=== PATIENT | male | born 1940 | race Caucasian/White ===

== ENCOUNTER 2020-09-11 17:14 | Inpatient (IN) | payer MEDICAID, SELFPAY ==
[2020-09-11] VITALS (7 sets, daily range): BP systolic 119–149; BP diastolic 49–71; PULSE 67–93; RESP 16–32; TEMP 36.5–39.9; O2SAT 92–98; BMI 29.2
--- NOTE | ~2020-09-11 | XR_ITS ---
EXAMINATION: XR CHEST CLINICAL INFORMATION: Cough. Question pneumonia COMPARISON: None TECHNIQUE: Frontal view of the chest was obtained. FINDINGS: Patchy ill-defined airspace opacities are seen bilaterally, right greater than left. No dense focal consolidation. No pleural effusion. No pulmonary edema. The cardiac silhouette is enlarged consistent with cardiomegaly. Convex right lumbar scoliosis. Degenerative changes of the bilateral shoulders. XR/XR chest 1V IMPRESSION: Patchy ill-defined airspace opacities are seen bilaterally. The appearance is nonspecific but it is typical for COVID viral pneumonitis. Other forms of multifocal infection or inflammation could have this appearance as well.
--- NOTE | 2020-09-11 17:29 | ED.FEVER ---
HPI - Fever General Chief Complaint: Fever Stated Complaint: fever Time Seen by Provider: 09/11/20 17:21 Source: patient Mode of arrival: ambulatory Limitations: language barrier History of Present Illness HPI Narrative: Patient history of hypertension diabetes been having fever with slight cough for last 3 - 4 days also complaining of pain in right lower chest. No one at home has COVID. Patient denies any nausea vomiting diarrhea no abdominal pain no urinary complaints no history of kidney stones on arrival patient temperature was 103.9 degrees MD elicited complaint: fever Onset (ago): day(s) (3) Related Data Home Medications Medication Instructions Recorded Confirmed metoprolol succinate 1 tab PO DAILY 09/11/20 09/11/20 Previous Rx's Medication Instructions Recorded amlodipine 5 mg tablet 5 mg PO DAILY #90 tab 03/29/20 atorvastatin 40 mg tablet 40 mg PO DAILY #90 tab 03/29/20 candesartan 8 mg tablet 8 mg PO DAILY #90 tab 03/29/20 insulin glargine 100 unit/mL (3 15 unit SUBCUT QAM #15 ml 03/29/20 mL) subcutaneous pen Allergies Allergy/AdvReac Type Severity Reaction Status Date / Time ciprofloxacin [Cipro] Allergy Unknown Verified 11/12/19 00:00 Review of Systems Review of Systems: Constitutional : No Weight loss, ++ Fever,+ Chills ENT/Mouth : No sore throat, No Rhinorrhea Eyes: No Eye Pain, No Swelling Cardiovascular : No Chest Pain, no palpitations Respiratory : ++Cough, No Sputum, no shortness of breath Gastrointestinal : no Nausea, No Vomiting, No Diarrhea, No abdominal Pain, no black stools Genitourinary : No Dysuria, No Urinary Frequency Musculoskeletal : No joint pain, No Myalgias, No Joint Swelling Skin : No Skin Lesions, No rash Neuro : No Weakness, No Numbness, No Dizziness, No Headache Psych : No Anxiety/Panic, No Depression Heme/Lymph: No Bruising, No Lymphadenopathy Endocrine : No Polyuria, No Polydipsia All other systems reviewed and are negative ON LICENSE OF [facility] Past Medical History Medical History Type 2 diabetes mellitus with hyperglycemia Social History Social History Alcohol intake: never Smoking Status: Never smoker Use of substances other than those prescribed or required for medical reasons: No Advance Directives: No Advance Directives Information Provided: Yes Physical Exam Vital Signs: Vital Signs: Last Vital Signs Temp 97.7 F 09/11/20 22:59 Pulse 68 09/11/20 22:59 Resp 28 H 09/11/20 22:59 BP 125/70 09/11/20 22:59 Pulse Ox 94 09/11/20 22:59 Body Mass Index 29.2 Appearance: Alert. Oriented X3. No acute distress. Eyes: Pupils equal, round and reactive to light. ENT: Pharynx normal. Neck: Normal inspection. Neck supple. CVS: Normal heart rate and rhythm. Pulses normal. Respiratory: No respiratory distress. Breath sounds normal. Abdomen: Soft and nontender. Bowel sounds are present, no mass palpable, no CVA tenderness Skin: Skin warm and dry. Normal skin color. Normal skin turgor. Extremities: No lower extremity edema. No calf tenderness Neuro: Oriented X 3. No motor deficit. No sensory deficit. MDM - Fever MDM Narrative Medical decision making narrative: Patient with fever cough clinically COVID and pneumonia chest x-ray suggestive of atypical infiltrate patient already got COVID vaccine 2nd dose was given yesterday, COVID test came positive, patient is saturating 95% at room air but looks sick will admit patient for IV steroids and prophylactic antibiotic treatment 2000: While sleeping patient pulse ox dropped to 91-92%. Patient is sleeping all the time not eating well with multiple comorbidities will admit patient for supportive treatment as patient is very high risk of getting worse with increased inflammatory markers Lab Data Attestation: I reviewed the patient's lab results. Result diagrams: 09/11/20 17:55 09/11/20 17:55 Labs: Lab Results 09/11/20 09/11/20 09/11/20 Range/Units 17:55 17:55 17:55 WBC 11.5 H (4.8-10.8) X10*3/uL RBC 5.02 (4.60-5.80) X10*6/uL Hgb 14.2 (14.0-18.0) g/dl Hct 42.3 (42-52) % MCV 84.3 (80-98) fL MCH 28.3 (27.0-33.0) pg MCHC 33.6 (31.0-36.0) g/dl RDW 14.5 (11.0-16.0) % Plt Count 180 (160-400) X10*3/uL MPV 10.3 (9.4-12.4) fL Immature Gran % (Auto) 0.8 H (0.0-0.4) % Neut % (Auto) 88.7 H (45-73) % Lymph % (Auto) 7.5 L (20-40) % [place] % (Auto) 2.9 (2-11) % Eos % (Auto) 0.0 (0-4) % Baso % (Auto) 0.1 (0-2) % Lymph # (Auto) 0.9 L (1.2-4.9) X10*3/uL [place] # (Auto) 0.3 (0.1-1.2) X10*3/uL Eos # (Auto) 0.0 (0.0-0.4) X10*3/uL Baso # (Auto) 0.0 (0.0-0.2) X10*3/uL Abs Immat Gran (auto) 0.09 H (0.00-0.03) X10*3/uL Absolute Neuts (auto) 10.2 H (2.0-8.3) X10*3/uL Absolute Nucleated RBC 0.000 (0.0-0.012) X10*3/uL Nucleated RBC % (auto) 0.0 (0.0-0.2) /100WBC Smear Tech's Comments VERIFIED PT 13.0 (10.8-13.0) SEC INR 1.1 (0.9-1.1) APTT 31.7 (24.1-38.0) SEC D-Dimer 412 NG/ML Sodium 141 (135-145) mmol/L Potassium 3.6 (3.3-5.1) mmol/L Chloride 104 (96-108) mmol/L Carbon Dioxide 26 (22-29) mmol/L Anion Gap 15 (12-20) BUN 17 H (9-16) mg/dL Creatinine 1.85 H (0.5-1.4) mg/dL Estim Creat Clear Calc 35.8 Estimated GFR 36 Random Glucose 157 H (60-115) mg/dL Lactic Acid (0.5-2.0) mmol/L Calcium 8.3 L (8.4-10.2) mg/dL Total Bilirubin (0.0-1.0) mg/dL Direct Bilirubin (0.0-0.5) mg/dL AST (5-37) U/L ALT (0-40) U/L Alkaline Phosphatase (39-117) U/L Lactate Dehydrogenase (118-273) U/L C-Reactive Protein (< or = 0.50) mg/dL Total Protein (6.5-8.0) g/dL Albumin (3.5-5.0) g/dL Lipase (8-78) U/L COVID-19 ([facility]) (Negative) COVID-19 Clin Com 09/11/20 09/11/20 09/11/20 Range/Units 17:55 17:55 18:03 WBC (4.8-10.8) X10*3/uL RBC (4.60-5.80) X10*6/uL Hgb (14.0-18.0) g/dl Hct (42-52) % MCV (80-98) fL MCH (27.0-33.0) pg MCHC (31.0-36.0) g/dl RDW (11.0-16.0) % Plt Count (160-400) X10*3/uL MPV (9.4-12.4) fL Immature Gran % (Auto) (0.0-0.4) % Neut % (Auto) (45-73) % Lymph % (Auto) (20-40) % [place] % (Auto) (2-11) % Eos % (Auto) (0-4) % Baso % (Auto) (0-2) % Lymph # (Auto) (1.2-4.9) X10*3/uL [place] # (Auto) (0.1-1.2) X10*3/uL Eos # (Auto) (0.0-0.4) X10*3/uL Baso # (Auto) (0.0-0.2) X10*3/uL Abs Immat Gran (auto) (0.00-0.03) X10*3/uL Absolute Neuts (auto) (2.0-8.3) X10*3/uL Absolute Nucleated RBC (0.0-0.012) X10*3/uL Nucleated RBC % (auto) (0.0-0.2) /100WBC Smear Tech's Comments PT (10.8-13.0) SEC INR (0.9-1.1) APTT (24.1-38.0) SEC D-Dimer NG/ML Sodium (135-145) mmol/L Potassium (3.3-5.1) mmol/L Chloride (96-108) mmol/L Carbon Dioxide (22-29) mmol/L Anion Gap (12-20) BUN (9-16) mg/dL Creatinine (0.5-1.4) mg/dL Estim Creat Clear Calc Estimated GFR Random Glucose (60-115) mg/dL Lactic Acid 1.2 (0.5-2.0) mmol/L Calcium (8.4-10.2) mg/dL Total Bilirubin 0.7 (0.0-1.0) mg/dL Direct Bilirubin 0.3 (0.0-0.5) mg/dL AST 41 H (5-37) U/L ALT 34 (0-40) U/L Alkaline Phosphatase 61 (39-117) U/L Lactate Dehydrogenase 364 H (118-273) U/L C-Reactive Protein 16.18 H (< or = 0.50) mg/dL Total Protein 6.6 (6.5-8.0) g/dL Albumin 3.3 L (3.5-5.0) g/dL Lipase 137 H (8-78) U/L COVID-19 ([facility]) Positive A (Negative) COVID-19 Clin Com See Note ECG Data ECG #1: Attestation: I personally reviewed and interpreted this ECG as follows: Interpretation: Normal sinus rhythm heart rate 67 beats per minute left axis deviation right bundle-branch block LVH nonspecific ST T wave changes no acute ischemic changes Discharge Plan Discharge Clinical Impression: COVID-19, Hypoxia Chronic kidney failure Qualifiers: Chronic kidney disease stage: stage 3 (moderate) Chronic kidney disease stage 3 subtype: stage 3b (GFR 30-44) Qualified Code(s): N18.32 - Chronic kidney disease, stage 3b Patient Disposition: Admitted As Inpatient
[2020-09-11 18:04] LABS: Basophils Percent Auto 0.1 % (0-2); Hematocrit 42.3 % (42-52); Hemoglobin 14.2 g/dl (14.0-18.0); Imm Gran Abs Auto 0.09 X10*3/uL (0.00-0.03); Imm Gran Pct Auto 0.8 % (0.0-0.4); Lymphocytes Absolute Auto 0.9 X10*3/uL (1.2-4.9); Lymphocytes Percent Auto 7.5 % (20-40); MANUAL DIFF FLAG SCAN; Mean Corpuscular HGB Conc 33.6 g/dl (31.0-36.0); Mean Corpuscular Hemoglobin 28.3 pg (27.0-33.0); Mean Corpuscular Volume 84.3 fL (80-98); Mean Platelet Volume 10.3 fL (9.4-12.4); Monocytes Absolute Auto 0.3 X10*3/uL (0.1-1.2); Monocytes Percent Auto 2.9 % (2-11); Neutrophils Absolute Auto 10.2 X10*3/uL (2.0-8.3); Neutrophils Percent Auto 88.7 % (45-73); Platelet Count 180 X10*3/uL (160-400); Red Blood Count 5.02 X10*6/uL (4.60-5.80); Red Cell Distribution Width 14.5 % (11.0-16.0); SCAN SMEAR FLAG 1; White Blood Count 11.5 X10*3/uL (4.8-10.8)
[2020-09-11] MEDS: Acetaminophen 325 MG TABLET 650 MG PO (18:09)
[2020-09-11 18:10] LABS: INTERNATIONAL NORM RATIO 1.1 (0.9-1.1)
[2020-09-11] MEDS: 0.9 % Sodium Chloride 1,000 ML 999 ML IVCONT (18:10)
[2020-09-11 18:20] LABS: Lactic Acid 1.2 mmol/L (0.5-2.0)
[2020-09-11 18:24] LABS: SLIDE REVIEW VERIFIED
[2020-09-11 18:34] LABS: Anion Gap 15 (12-20); Blood Urea Nitrogen 17 mg/dL (9-16); Calcium 8.3 mg/dL (8.4-10.2); Carbon Dioxide 26 mmol/L (22-29); Chloride 104 mmol/L (96-108); Creatinine Clr Calc Pharmacy 35.8; Estimated Glomerular Filt Rate 36; Glucose Random 157 mg/dL (60-115); Potassium 3.6 mmol/L (3.3-5.1); Sodium 141 mmol/L (135-145)
[2020-09-11 18:36] LABS: Alanine Aminotransferase 34 U/L (0-40); Albumin Level 3.3 g/dL (3.5-5.0); Alkaline Phosphatase 61 U/L (39-117); Aspartate Amino Transferase 41 U/L (5-37); Bilirubin Direct 0.3 mg/dL (0.0-0.5); Bilirubin Total 0.7 mg/dL (0.0-1.0); Total Protein 6.6 g/dL (6.5-8.0)
[2020-09-11 18:38] LABS: COVID-19 Test Positive (Negative)
[2020-09-11] MEDS: dexAMETHasone sod phosphate 4 MG/ML VIAL 6 MG IVPUSH (19:03)
[2020-09-11] MEDS: cefTRIAXone sodium 1 GM in 0.9 % Sodium Chloride 50 ML IV (19:03)
[2020-09-11 19:09] LABS: C Reactive Protein 16.18 mg/dL (< or = 0.50); Lactate Dehydrogenase 364 U/L (118-273)
[2020-09-11 19:10] LABS: Lipase 137 U/L (8-78)
[2020-09-11 19:25] LABS: D Dimer 412 NG/ML; Partial Thromboplastin Time 31.7 SEC (24.1-38.0)
[2020-09-11] MEDS: Azithromycin 500 MG in 0.9 % Sodium Chloride 250 ML 125 MG IV (19:34)
--- NOTE | 2020-09-11 20:47 | PC.NURSE ---
pt being seen by hospitalist at this time.
--- NOTE | 2020-09-11 21:24 | PM.IMHP ---
History of Present Illness Date of Service: 09/11/20 Chief Complaint: Fevers and chills 79-year-old male with a past medical history of hypertension, hyperlipidemia, diabetes, coronary artery disease, chronic kidney disease, CHF with EF of 40% presented to the hospital with a chief complaint of fevers and chills. Most of the history obtained from the patient's family as well as the ER staff. Reportedly patient was tested COVID positive about few days ago and has been having fevers and chills at home. Denies any shortness of breath. Had dry cough. Denies any chest pain lightheadedness dizziness. Denies any nausea vomiting. Had loose stools. Review of all other systems is negative except mentioned above ER course: Per ER team patient was saturating 94% on room air, inflammatory markers elevated, chest x-ray showed COVID pneumonia. Also noted to have mild elevation in the creatinine. Admitted to the hospital for further management. [facility] Medical History Type 2 diabetes mellitus with hyperglycemia Social History Household Members: Family Housing: House Alcohol intake: never Smoking Status: Never smoker service: No Current occupational status: retired Meds Allergies Allergy/AdvReac Type Severity Reaction Status Date / Time ciprofloxacin [Cipro] Allergy Unknown Verified 11/12/19 00:00 Active Medications: Current Medications Generic Name Dose Route Start Last Admin Trade Name Freq PRN Reason Stop Dose Admin Acetaminophen 650 mg 09/11/20 21:12 Acetaminophen 325 Mg Tablet PO Q6H PRN Pain, Mild (Pain Scale 1-3) Albuterol Sulfate 4 puff 09/11/20 21:05 Albuterol Sulfate 90 Mcg 8 Gm Inhaler INHALE Q2H PRN Shortness of Breath/Wheezing Ascorbic Acid 500 mg 09/12/20 09:00 Ascorbic Acid 500 Mg Tablet PO DAILY [facility] Azithromycin 500 mg 09/11/20 21:15 Azithromycin 500 Mg Tablet PO Q24H [facility] Docusate Sodium 100 mg 09/11/20 21:12 Docusate Sodium 100 Mg Capsule PO DAILY PRN Constipation Enoxaparin Sodium 40 mg 09/11/20 21:15 Enoxaparin Sodium 40 Mg/0.4 Ml Syringe SUBCUT Q24H [facility] Ceftriaxone Sodium 1 gm/ 50 mls @ 100 mls/hr 09/12/20 22:00 Sodium Chloride IV Q24H [facility] Insulin Glargine 10 unit 09/12/20 21:00 Insulin Glargine,Hum.Rec.Anlog 100 Unit/Ml 10 Ml Vial SUBCUT BEDTIME [facility] Insulin Human Lispro 0 unit 09/12/20 07:30 Insulin Lispro 100 Unit/Ml 3 Ml Vial SUBCUT QIDACHS [facility] Protocol Methylprednisolone Sodium Succinate 80 mg 09/11/20 22:00 Methylprednisolone Sod Succ 125 Mg/2 Ml Vial IVPUSH Q12H [facility] Senna 17.2 mg 09/11/20 21:12 Sennosides 8.6 Mg Tablet PO BEDTIME PRN Constipation Sodium Chloride 3 ml 09/12/20 00:00 0.9 % Sodium Chloride Flush 3 Ml Syringe IVFLUSH QSHIFT [facility] Vitamin D 20 mcg 09/12/20 09:00 Cholecalciferol (Vitamin D3) 10 Mcg Tablet PO DAILY [facility] Zinc Sulfate 80 mg 09/12/20 09:00 Zinc Sulfate 220 Mg Capsule PO DAILY [facility] Physical Exam Vital Signs and Narrative: Vital Signs: Last Vital Signs Temp 100.3 F 09/11/20 19:51 Pulse 84 09/11/20 19:49 Resp 32 H 09/11/20 19:49 BP 119/60 09/11/20 19:49 Pulse Ox 95 09/11/20 19:49 Body Mass Index 29.2 Gen: Appears be in no acute distress HEENT: NCAT, Moist mucosa. Pulmonary: Breathing comfortably, saturating 94% and CVS: Regular Abdomen: BS+, Soft, Nontender Extremities: Warm well perfused; no pedal edema Neuro: Alert and awake. Moves all extremities equally Results Labs CBC and Chem 7: 09/14/20 06:16 09/15/20 12:37 Labs: Laboratory Results - last 24 hr 09/11/20 09/11/20 09/11/20 17:55 17:55 17:55 MCV 84.3 MCH 28.3 MCHC 33.6 RDW 14.5 Plt Count 180 MPV 10.3 Immature Gran % (Auto) 0.8 H Neut % (Auto) 88.7 H Lymph % (Auto) 7.5 L [place] % (Auto) 2.9 Eos % (Auto) 0.0 Baso % (Auto) 0.1 Lymph # (Auto) 0.9 L Stephens # (Auto) 0.3 Eos # (Auto) 0.0 Baso # (Auto) 0.0 Abs Immat Gran (auto) 0.09 H Absolute Neuts (auto) 10.2 H Absolute Nucleated RBC 0.000 Nucleated RBC % (auto) 0.0 Smear Tech's Comments VERIFIED PT 13.0 INR 1.1 APTT 31.7 D-Dimer 412 Anion Gap 15 Estim Creat Clear Calc 35.8 Estimated GFR 36 Random Glucose 157 H Lactic Acid Calcium 8.3 L Total Bilirubin Direct Bilirubin AST ALT Alkaline Phosphatase Lactate Dehydrogenase C-Reactive Protein Total Protein Albumin Lipase COVID-19 ([facility]) COVID-19 Clin Com 09/11/20 09/11/20 09/11/20 17:55 17:55 18:03 MCV MCH MCHC RDW Plt Count MPV Immature Gran % (Auto) Neut % (Auto) Lymph % (Auto) Stephens % (Auto) Eos % (Auto) Baso % (Auto) Lymph # (Auto) Stephens # (Auto) Eos # (Auto) Baso # (Auto) Abs Immat Gran (auto) Absolute Neuts (auto) Absolute Nucleated RBC Nucleated RBC % (auto) Smear Tech's Comments PT INR APTT D-Dimer Anion Gap Estim Creat Clear Calc Estimated GFR Random Glucose Lactic Acid 1.2 Calcium Total Bilirubin 0.7 Direct Bilirubin 0.3 AST 41 H ALT 34 Alkaline Phosphatase 61 Lactate Dehydrogenase 364 H C-Reactive Protein 16.18 H Total Protein 6.6 Albumin 3.3 L Lipase 137 H COVID-19 ([facility]) Positive A COVID-19 Clin Com See Note Imaging Radiologist's Impressions: Impressions Chest X-Ray 09/11/20 17:30 IMPRESSION: Patchy ill-defined airspace opacities are seen bilaterally. The appearance is nonspecific but it is typical for COVID viral pneumonitis. Other forms of multifocal infection or inflammation could have this appearance as well. Assessment and Plan (1) COVID-19: Status: Acute 79-year-old male with a past medical history of hypertension, hyperlipidemia, diabetes, coronary artery disease, CKD, CHF with EF of 40% presented to the hospital with a chief complaint of fevers and chills. Patient is COVID-19 positive. Chest x-ray showed COVID-19 pneumonia. Admitted for further management. COVID-19 pneumonia: Will continue the patient on ceftriaxone and azithromycin. Will continue the patient's Solu-Medrol 80 mg IV b.i.d.. Spoke to the patient's daughter-Dr. Gonzalez; requesting [facility] protocol. Spoke to M[facility] from [facility] for possible approval-recommended remdesivir for now; Spoke to the family about the side effects of the home medications, agreed to continue the treatment. Will continue the patient on multi vitamins including vitamin-D, vitamin-C, zinc. Supplemental oxygen p.r.n. goal oxygen saturation greater than 95%. Will also consult pulmonology for further recommendations Diabetes: Will give the patient on Lantus plus sliding scale. Monitor fingerstick glucose. Mild DC on CKD: Avoid nephrotoxins. Monitor creatinine. Encouraged oral fluids. Will avoid IV fluids given COVID-19 pneumonia CHF: Stable. Continue home medications. DVT prophylaxis: Lovenox Code status: Full code
--- NOTE | 2020-09-11 22:12 | ECG_ITS ---
Test Reason : COVID SYMPTOMS Blood Pressure : / mmHG Vent. Rate : 067 BPM Atrial Rate : 067 BPM P-R Int : 150 ms QRS Dur : 142 ms QT Int : 482 ms P-R-T Axes : 047 -46 005 degrees QTc Int : 509 ms Normal sinus rhythm Left axis deviation Right bundle branch block Minimal voltage criteria for LVH, may be normal variant Inferior infarct , age undetermined Abnormal ECG No previous ECGs available Referred By: Germán Wyatt Electronically Signed By:Jermaine Valle
[2020-09-11] MEDS: Remdesivir 200 MG in 0.9 % Sodium Chloride 210 ML 105 MG IV (23:02)
[2020-09-11] MEDS: Azithromycin 500 MG TABLET PO (23:03)
[2020-09-11] MEDS: Enoxaparin Sodium 40 MG/0.4 ML SYRINGE SUBCUT (23:03)
[2020-09-11] MEDS: methylPREDNISolone Sod Succ 125 MG/2 ML VIAL 80 MG IVPUSH (23:03)
[2020-09-12] MEDS: 0.9 % Sodium Chloride Flush 3 ML SYRINGE IVFLUSH ×4 (00:16→21:47)
[2020-09-12 03:00] VITALS: BP 133/67; PULSE 60; RESP 10; O2SAT 96
[2020-09-12 06:00] VITALS: BP 136/67; PULSE 68; RESP 10; TEMP 37.2; O2SAT 95
[2020-09-12 08:25] LABS: Glucose, Whole Blood 206 mg/dL (60-115)
[2020-09-12 08:47] LABS: MANUAL DIFF FLAG NO
[2020-09-12 09:05] LABS: Basophils Percent Auto 0.1 % (0-2); Hematocrit 46.7 % (42-52); Hemoglobin 15.2 g/dl (14.0-18.0); Imm Gran Abs Auto 0.04 X10*3/uL (0.00-0.03); Imm Gran Pct Auto 0.4 % (0.0-0.4); Lymphocytes Absolute Auto 1.2 X10*3/uL (1.2-4.9); Lymphocytes Percent Auto 11.1 % (20-40); Mean Corpuscular HGB Conc 32.5 g/dl (31.0-36.0); Mean Corpuscular Hemoglobin 27.7 pg (27.0-33.0); Mean Corpuscular Volume 85.2 fL (80-98); Mean Platelet Volume 11.3 fL (9.4-12.4); Monocytes Absolute Auto 0.1 X10*3/uL (0.1-1.2); Monocytes Percent Auto 1.1 % (2-11); Neutrophils Absolute Auto 9.2 X10*3/uL (2.0-8.3); Neutrophils Percent Auto 87.3 % (45-73); Platelet Count 201 X10*3/uL (160-400); Red Blood Count 5.48 X10*6/uL (4.60-5.80); Red Cell Distribution Width 14.6 % (11.0-16.0); White Blood Count 10.5 X10*3/uL (4.8-10.8)
[2020-09-12 09:21] LABS: Lactate Dehydrogenase 356 U/L (118-273)
[2020-09-12 09:24] LABS: Anion Gap 17 (12-20); Blood Urea Nitrogen 19 mg/dL (9-16); Calcium 8.3 mg/dL (8.4-10.2); Carbon Dioxide 24 mmol/L (22-29); Chloride 108 mmol/L (96-108); Creatinine Clr Calc Pharmacy 39.7; Estimated Glomerular Filt Rate 40; Glucose Random 234 mg/dL (60-115); Magnesium 2.2 mg/dL (1.6-2.6); Potassium 4.5 mmol/L (3.3-5.1); Sodium 144 mmol/L (135-145)
[2020-09-12] MEDS: Zinc Sulfate 220 MG CAPSULE PO (09:28)
[2020-09-12] MEDS: Insulin Lispro 100 UNIT/ML 3 ML VIAL SUBCUT ×4 (09:28→21:42)
[2020-09-12] MEDS: Cholecalciferol (Vitamin D3) 10 MCG TABLET 20 MCG PO (09:28)
[2020-09-12] MEDS: Ascorbic Acid 500 MG TABLET PO (09:28)
[2020-09-12] MEDS: methylPREDNISolone Sod Succ 125 MG/2 ML VIAL 80 MG IVPUSH ×2 (09:30→21:41)
[2020-09-12 09:37] LABS: Ferritin 536 ng/mL (20-250)
[2020-09-12 09:46] LABS: Procalcitonin 0.42 ng/mL
--- NOTE | 2020-09-12 11:31 | HO.PM.IMPN ---
Subjective Subjective Date of Service: 09/12/20 <Jaida Ramirez NP - Last Filed: 09/12/20 12:14> 09/12/20 <Nadir Lama MD - Last Filed: 09/12/20 18:19> Interval History: Follow up covid 19 pneumonia. No pain or breathing trouble. <Jaida Ramirez NP - Last Filed: 09/12/20 12:14> Physical Exam Vital Signs: Vital Signs: Last Vital Signs Temp 99.0 F 09/12/20 06:00 Pulse 68 09/12/20 06:00 Resp 10 L 09/12/20 06:00 BP 136/67 09/12/20 06:00 Pulse Ox 95 09/12/20 06:00 Body Mass Index 29.2 <Jaida Ramirez NP - Last Filed: 09/12/20 12:14> Appearing in no acute distress head is normocephalic atraumatic lungs normal expansion heart regular rate rhythm, clear S1, S2 positive bowel sounds, abdomen is soft, nontender neuro patient is alert, mildly slower to respond but not confused. no focal deficits <Jaida Ramirez NP - Last Filed: 09/12/20 12:14> Objective Data Current Medications Generic Name Dose Route Start Last Admin Trade Name Freq PRN Reason Stop Dose Admin Acetaminophen 650 mg 09/11/20 21:12 Acetaminophen 325 Mg Tablet PO Q6H PRN Pain, Mild (Pain Scale 1-3) Albuterol Sulfate 4 puff 09/11/20 21:05 Albuterol Sulfate 90 Mcg 8 Gm Inhaler INHALE Q2H PRN Shortness of Breath/Wheezing Ascorbic Acid 500 mg 09/12/20 09:00 09/12/20 09:28 Ascorbic Acid 500 Mg Tablet PO 500 mg DAILY [facility] Administration Azithromycin 500 mg 09/11/20 22:00 09/11/20 23:03 Azithromycin 500 Mg Tablet PO 500 mg Q24H [facility] Administration Docusate Sodium 100 mg 09/11/20 21:12 Docusate Sodium 100 Mg Capsule PO DAILY PRN Constipation Enoxaparin Sodium 40 mg 09/11/20 22:00 09/11/20 23:03 Enoxaparin Sodium 40 Mg/0.4 Ml Syringe SUBCUT 40 mg Q24H [facility] Administration Ceftriaxone Sodium 1 gm/ 50 mls @ 100 mls/hr 09/12/20 22:00 Sodium Chloride IV Q24H [facility] Remdesivir 100 mg/ Sodium 230 mls @ 115 mls/hr 09/12/20 21:00 Chloride IV 09/15/20 22:59 Q24H [facility] Insulin Glargine 10 unit 09/12/20 21:00 Insulin Glargine,Hum.Rec.Anlog 100 Unit/Ml 10 Ml Vial SUBCUT BEDTIME [facility] Insulin Human Lispro 0 unit 09/12/20 07:30 09/12/20 09:28 Insulin Lispro 100 Unit/Ml 3 Ml Vial SUBCUT 4 unit QIDACHS [facility] Administration Protocol Methylprednisolone Sodium Succinate 80 mg 09/11/20 22:00 09/12/20 09:30 Methylprednisolone Sod Succ 125 Mg/2 Ml Vial IVPUSH 80 mg Q12H [facility] Administration Senna 17.2 mg 09/11/20 21:12 Sennosides 8.6 Mg Tablet PO BEDTIME PRN Constipation Sodium Chloride 3 ml 09/12/20 00:00 09/12/20 09:28 0.9 % Sodium Chloride Flush 3 Ml Syringe IVFLUSH 3 ml QSHIFT [facility] Administration Vitamin D 20 mcg 09/12/20 09:00 09/12/20 09:28 Cholecalciferol (Vitamin D3) 10 Mcg Tablet PO 20 mcg DAILY [facility] Administration Zinc Sulfate 220 mg 09/12/20 09:00 09/12/20 09:28 Zinc Sulfate 220 Mg Capsule PO 220 mg DAILY [facility] Administration <Jaida Ramirez NP - Last Filed: 09/12/20 12:14> Labs CBC & Chem 7: : 09/12/20 08:38 09/12/20 08:38 <Jaida Ramirez NP - Last Filed: 09/12/20 12:14> Assessment and Plan (1) COVID-19: Status: Acute <Jaida Ramirez NP - Last Filed: 09/12/20 12:14> Assessment and Plan: 79-year-old male with a past medical history of hypertension, hyperlipidemia, diabetes, coronary artery disease, CKD, CHF with EF of 40% presented to the hospital with a chief complaint of fevers and chills. Patient is COVID-19 positive. Chest x-ray showed COVID-19 pneumonia. COVID-19 pneumonia. No hypoxia noted, fever of 103 yesterday no fever today. Patients daughter, Dr. Gonzalez requested that the [facility] protocol be used for covid management. -Ferritin 532, LDH 356, procal 0.42. Trend -Solumedrol 80mg Q12h -Will stop Rocephin and continue Azithromycin -ID following rec remdesivir -pulmonology consult -Continue on vitamin D, C, zinc -Supplemental oxygen as needed -[place] Diabetes -sliding scale -lantus -ADA diet Mild DC on CKD with proteinuria -Add LR maint as per nephrology -Urine total protein, albumin added -Avoid nephrotoxins. -trend creatinine. CHF. No exacerbation continue home medications. DVT prophylaxis: Lovenox Attending: Dr. Lama <Jaida Ramirez NP - Last Filed: 09/12/20 12:14>
--- NOTE | 2020-09-12 11:47 | P.CONNP_ITS ---
History of Present Illness Reason for Consult Consult date: 09/12/20 Reason for consult: DC Chief Complaint Chief complaint: Covid PNA History of Present Illness Narrative: Mr. 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 The patient has a CXR c/w viral PNA. He is now on dexamethasone and Remdesivir. He appears hypo to euvolemic on exam. He denies edema. Review of Systems Review of Systems He reports Dyspnea Yes all other systems are reviewed and are negative PMFSH Past Medical History Medical History Type 2 diabetes mellitus with hyperglycemia Family History Pertinent family history: Family history of CKD from diabetes. Social History Social History Alcohol intake: never Smoking Status: Never smoker Use of substances other than those prescribed or required for medical reasons: No Advance Directives: No Advance Directives Information Provided: Yes Meds Allergies Allergy/AdvReac Type Severity Reaction Status Date / Time ciprofloxacin [Cipro] Allergy Unknown Verified 11/12/19 00:00 Active Medications: Current Medications Generic Name Dose Route Start Last Admin Trade Name Freq PRN Reason Stop Dose Admin Acetaminophen 650 mg 09/11/20 21:12 Acetaminophen 325 Mg Tablet PO Q6H PRN Pain, Mild (Pain Scale 1-3) Albuterol Sulfate 4 puff 09/11/20 21:05 Albuterol Sulfate 90 Mcg 8 Gm Inhaler INHALE Q2H PRN Shortness of Breath/Wheezing Ascorbic Acid 500 mg 09/12/20 09:00 09/12/20 09:28 Ascorbic Acid 500 Mg Tablet PO 500 mg DAILY [facility] Administration Azithromycin 500 mg 09/11/20 22:00 09/11/20 23:03 Azithromycin 500 Mg Tablet PO 500 mg Q24H [facility] Administration Docusate Sodium 100 mg 09/11/20 21:12 Docusate Sodium 100 Mg Capsule PO DAILY PRN Constipation Enoxaparin Sodium 40 mg 09/11/20 22:00 09/11/20 23:03 Enoxaparin Sodium 40 Mg/0.4 Ml Syringe SUBCUT 40 mg Q24H [facility] Administration Ceftriaxone Sodium 1 gm/ 50 mls @ 100 mls/hr 09/12/20 22:00 Sodium Chloride IV Q24H [facility] Remdesivir 100 mg/ Sodium 230 mls @ 115 mls/hr 09/12/20 21:00 Chloride IV 09/15/20 22:59 Q24H [facility] Insulin Glargine 10 unit 09/12/20 21:00 Insulin Glargine,Hum.Rec.Anlog 100 Unit/Ml 10 Ml Vial SUBCUT BEDTIME [facility] Insulin Human Lispro 0 unit 09/12/20 07:30 09/12/20 09:28 Insulin Lispro 100 Unit/Ml 3 Ml Vial SUBCUT 4 unit QIDACHS [facility] Administration Protocol Methylprednisolone Sodium Succinate 80 mg 09/11/20 22:00 09/12/20 09:30 Methylprednisolone Sod Succ 125 Mg/2 Ml Vial IVPUSH 80 mg Q12H [facility] Administration Senna 17.2 mg 09/11/20 21:12 Sennosides 8.6 Mg Tablet PO BEDTIME PRN Constipation Sodium Chloride 3 ml 09/12/20 00:00 09/12/20 09:28 0.9 % Sodium Chloride Flush 3 Ml Syringe IVFLUSH 3 ml QSHIFT [facility] Administration Vitamin D 20 mcg 09/12/20 09:00 09/12/20 09:28 Cholecalciferol (Vitamin D3) 10 Mcg Tablet PO 20 mcg DAILY [facility] Administration Zinc Sulfate 220 mg 09/12/20 09:00 09/12/20 09:28 Zinc Sulfate 220 Mg Capsule PO 220 mg DAILY [facility] Administration Home Medications Medication Instructions Recorded Confirmed Last Taken Type metoprolol succinate 1 tab PO DAILY 09/11/20 09/11/20 Unknown History Physical Exam Vital Signs: Last Vital Signs Temp 99.0 F 09/12/20 06:00 Pulse 68 09/12/20 06:00 Resp 10 L 09/12/20 06:00 BP 136/67 09/12/20 06:00 Pulse Ox 95 09/12/20 06:00 Body Mass Index 29.2 Const General: cooperative and no acute distress Resp Effort & Inspection: normal respiratory effort Auscultation: clear to auscultation bilaterally Cardio Jugular venous distension: no JVD Rate: regular rate Heart sounds: S1 normal heart sound present and S2 normal heart sound present GI Inspection: Yes normal to inspection Percussion: Yes normal to percussion Auscultation: normal bowel sounds Extrem Other: No pitting edema Results Lab Results Result Diagrams: 09/12/20 08:38 09/12/20 08:38 Lab results: Chemistry 09/11/20 09/12/20 17:55 08:38 Sodium 141 144 Potassium 3.6 4.5 D Carbon Dioxide 26 24 BUN 17 H 19 H Creatinine 1.85 H 1.67 H Calcium 8.3 L 8.3 L Hematology 09/11/20 09/12/20 17:55 08:38 WBC 11.5 H 10.5 Hgb 14.2 15.2 Plt Count 180 201 Assessment and Plan (1) Chronic kidney failure: Qualifiers: Chronic kidney disease stage: stage 3 (moderate) Chronic kidney disease stage 3 subtype: stage 3b (GFR 30-44) Qualified Code(s): N18.32 - Chronic kidney disease, stage 3b Problem details: Mr. 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 1. CKD stage IIIb Baseline Cr 2.0-2.2mg/dL Followed by Dr. Eduardo Flores. Last seen in office 08/01/2019. Pt was found to be proteinuric, with a urine protein gap. UPEP normal. Complements negative. Anti GBM negative. Likely diabetic nephropathy. Now with COVID Plan: - please provide maintenance LR at 100cc/hr for 1 liter given viral syndrome and insensible losses to prevent dc - DC risk score elevated, LR recommended for 1 liter - Please repeat a TP/Cr and Alb/Cr spot urine, may need further work up than diabetes. Status: Acute (2) Type 2 diabetes mellitus with hyperglycemia: Status: Acute (3) COVID-19: Status: Acute
[2020-09-12 12:41] LABS: Glucose, Whole Blood 219 mg/dL (60-115)
[2020-09-12] MEDS: Lactated Ringers 1,000 ML 50 ML IVCONT (13:03)
[2020-09-12 13:04] VITALS: BP 128/67; PULSE 74; RESP 24; TEMP 37.2; O2SAT 97
--- NOTE | 2020-09-12 14:51 | P.CONPL_ITS ---
History of Present Illness History of Present Illness Consult date: 09/12/20 Reason for consult: pneumonia Chief complaint: Covid PNA Narrative: 79-year-old male with a past medical history of hypertension, hyperlipidemia, diabetes, coronary artery disease, chronic kidney disease, CHF with EF of 40% presented to the hospital with a chief complaint of fevers and ch ills. Most of the history obtained from the patient's family as well as the ER staff. Reportedly patient was tested COVID positive about few days ago and has been having fevers and chills at home. Denies any shortness of breath. Had dry cough. Denies any chest pain lightheadedness dizziness. Denies any nausea vomiting. In the ER hewas saturating 94% on room air, inflammatory markers elevated, chest x-ray showed COVID pneumonia. Also noted to have mild elevation in the creatinine. Admitted to the hospital for further management. He was started on Solumedrol and Remdisivir as well as antibacterial therapy. Currently on RA. Review of Systems Constitutional: Constitutional: Reports fatigue, Reports fever(s) and Reports malaise ENT: Denies change in voice, Denies lip swelling, Denies mouth pain, Reports nasal congestion, Reports nasal discharge and Denies tongue swelling Cardiovascular: Cardiovascular: Denies chest pain and Reports dyspnea Respiratory: Respiratory: Reports cough and Reports dyspnea Gastrointestinal: Gastrointestinal: Denies abdominal pain Musculoskeletal: Musculoskeletal: Denies no additional musculoskeletal complaints Neurologic: Denies Neuro-related abnormal movements Psychiatric: Psychiatric: Denies no additional psychiatric complaints Endocrine: Endocrine: Reports fatigue Hematologic/Lymphatic: Hematologic/Lymphatic: Denies easy bleeding and Denies lymphadenopathy Allergic/Immunologic: Allergic/Immunologic: Denies lip swelling and Denies tongue swelling [facility] Past Medical History Medical History Type 2 diabetes mellitus with hyperglycemia Social History Social History Alcohol intake: never Smoking Status: Never smoker Meds Allergies Allergy/AdvReac Type Severity Reaction Status Date / Time ciprofloxacin [Cipro] Allergy Unknown Verified 11/12/19 00:00 Active Medications: Current Medications Generic Name Dose Route Start Last Admin Trade Name Freq PRN Reason Stop Dose Admin Acetaminophen 650 mg 09/11/20 21:12 Acetaminophen 325 Mg Tablet PO Q6H PRN Pain, Mild (Pain Scale 1-3) Albuterol Sulfate 4 puff 09/11/20 21:05 Albuterol Sulfate 90 Mcg 8 Gm Inhaler INHALE Q2H PRN Shortness of Breath/Wheezing Ascorbic Acid 500 mg 09/12/20 09:00 09/12/20 09:28 Ascorbic Acid 500 Mg Tablet PO 500 mg DAILY [facility] Administration Azithromycin 500 mg 09/11/20 22:00 09/11/20 23:03 Azithromycin 500 Mg Tablet PO 500 mg Q24H [facility] Administration Docusate Sodium 100 mg 09/11/20 21:12 Docusate Sodium 100 Mg Capsule PO DAILY PRN Constipation Enoxaparin Sodium 40 mg 09/11/20 22:00 09/11/20 23:03 Enoxaparin Sodium 40 Mg/0.4 Ml Syringe SUBCUT 40 mg Q24H [facility] Administration Famotidine 40 mg 09/12/20 21:00 Famotidine 20 Mg Tablet PO BEDTIME [facility] Remdesivir 100 mg/ Sodium 230 mls @ 115 mls/hr 09/12/20 21:00 Chloride IV 09/15/20 22:59 Q24H [facility] Lactated Ringer's 1,000 mls @ 50 mls/hr 09/12/20 12:15 09/12/20 13:03 Lr IVCONT 50 mls/hr .Q20H [facility] Administration Insulin Glargine 10 unit 09/12/20 21:00 Insulin Glargine,Hum.Rec.Anlog 100 Unit/Ml 10 Ml Vial SUBCUT BEDTIME [facility] Insulin Human Lispro 0 unit 09/12/20 07:30 09/12/20 12:57 Insulin Lispro 100 Unit/Ml 3 Ml Vial SUBCUT 4 unit QIDACHS [facility] Administration Protocol Methylprednisolone Sodium Succinate 80 mg 09/11/20 22:00 09/12/20 09:30 Methylprednisolone Sod Succ 125 Mg/2 Ml Vial IVPUSH 80 mg Q12H [facility] Administration Senna 17.2 mg 09/11/20 21:12 Sennosides 8.6 Mg Tablet PO BEDTIME PRN Constipation Sodium Chloride 3 ml 09/12/20 00:00 09/12/20 09:28 0.9 % Sodium Chloride Flush 3 Ml Syringe IVFLUSH 3 ml QSHIFT [facility] Administration Vitamin D 20 mcg 09/12/20 09:00 09/12/20 09:28 Cholecalciferol (Vitamin D3) 10 Mcg Tablet PO 20 mcg DAILY [facility] Administration Zinc Sulfate 220 mg 09/12/20 09:00 09/12/20 09:28 Zinc Sulfate 220 Mg Capsule PO 220 mg DAILY [facility] Administration Home Medications Medication Instructions Recorded Confirmed Last Taken Type metoprolol succinate 1 tab PO DAILY 09/11/20 09/11/20 Unknown History Physical Exam Vital Signs: Vital Signs: Last Vital Signs Temp 98.9 F 09/12/20 13:04 Pulse 74 09/12/20 13:04 Resp 24 H 09/12/20 13:04 BP 128/67 09/12/20 13:04 Pulse Ox 97 09/12/20 13:04 Body Mass Index 29.2 Const: General: alert Neck: Neck: Yes normal visual inspection, Yes full ROM and Yes no lymphadenopathy Chest: Chest palpation & inspection: normal inspection of the chest Resp: Auscultation: diminished lung sounds Cardio: Rate: regular rate Rhythm: regular rhythm Heart sounds: S1 normal heart sound present and S2 normal heart sound present GI: Palpation (GI): Soft to palpation and nontender Auscultation: normal bowel sounds Skin: General skin exam: rashes and/or lesions noted Results Laboratory Findings CBC and BMP: 09/12/20 08:38 09/12/20 08:38 ABG, PT/INR, D-dimer: PT/INR, D-dimer PT 13.0 SEC (10.8-13.0) 09/11/20 17:55 INR 1.1 (0.9-1.1) 09/11/20 17:55 D-Dimer 412 NG/ML 09/11/20 17:55 Abnormal lab findings: Abnormal Labs 09/11/20 09/11/20 09/11/20 17:55 17:55 17:55 WBC 11.5 H Immature Gran % (Auto) 0.8 H Neut % (Auto) 88.7 H Lymph % (Auto) 7.5 L [place] % (Auto) Lymph # (Auto) 0.9 L Abs Immat Gran (auto) 0.09 H Absolute Neuts (auto) 10.2 H BUN 17 H Creatinine 1.85 H POC Glucose Random Glucose 157 H Calcium 8.3 L Ferritin AST 41 H Lactate Dehydrogenase 364 H C-Reactive Protein 16.18 H Albumin 3.3 L Lipase 137 H COVID-19 ([facility]) 0409/12/20 09/12/20 18:03 08:20 08:38 WBC Immature Gran % (Auto) Neut % (Auto) 87.3 H Lymph % (Auto) 11.1 L [place] % (Auto) 1.1 L Lymph # (Auto) Abs Immat Gran (auto) 0.04 H Absolute Neuts (auto) 9.2 H BUN Creatinine POC Glucose 206 H Random Glucose Calcium Ferritin AST Lactate Dehydrogenase C-Reactive Protein Albumin Lipase COVID-19 ([facility]) Positive A 09/12/20 09/12/20 09/12/20 08:38 08:38 12:24 WBC Immature Gran % (Auto) Neut % (Auto) Lymph % (Auto) [place] % (Auto) Lymph # (Auto) Abs Immat Gran (auto) Absolute Neuts (auto) BUN 19 H Creatinine 1.67 H POC Glucose 219 H Random Glucose 234 H D Calcium 8.3 L Ferritin 536 H AST Lactate Dehydrogenase 356 H C-Reactive Protein Albumin Lipase COVID-19 ([facility]) Assessment and Plan (1) Acute respiratory disease due to 2019 novel coronavirus: Status: Acute (2) COVID-19: Status: Acute (3) Pneumonia: Qualifiers: Pneumonia type: due to unspecified organism Laterality: bilateral Lung location: unspecified part of lung Qualified Code(s): J18.9 - Pneumonia, unspecified organism Status: Acute Continue Remdisivir Consider changing the Solumedrol to Decadron 6mg daily Consider descalation of antibiotics to Doxycycline to cover better staph post viral bacterial infections Pepcid/vitC/zinc/melatonin Continue Lovenox
[2020-09-12 15:07] VITALS: BP 134/62; PULSE 80; RESP 20; TEMP 36.7; O2SAT 96
[2020-09-12 16:34] LABS: Glucose, Whole Blood 311 mg/dL (60-115)
--- NOTE | 2020-09-12 18:19 | PM.EVENT ---
Event Note Date of Service: 09/12/20 Event Note: Patient seen examined , chart reviewed case discussed with APC. Briefly 79-year-old gentleman with past medical history of hypertension hyperlipidemia diabetes coronary artery disease CHF with EF 40% came in with complaints of fever chills, dry cough, and loose stools with COVID positive test few days ago. On examination patient awake alert slow to respond Lungs clear to auscultation, no use of accessory muscles no respiratory distress Extremities no edema Assessment and plan COVID-19 pneumonia, no hypoxia Patient evaluated by Infectious Disease and placed on remdesivir, continue IV steroids, IV azithromycin and supportive care follow labs and clinical course closely
--- NOTE | 2020-09-12 18:22 | PC.NURSE ---
Pt. arrived from ED, Covid positive, [place] speaking only, TIMBI-SHA SHOSHONE, A+Ox1, pleasantly confused, per daughter Corinne- pt. has memory issues and is forgetful at home, OOb with assistance at home, attempted to get pt. OOB to bathroom but pt. is a max assist, and can stand and pivot at most, LR running at 50mL/hr, sats at 96% on RA, no SOB noted, no cough noted, pt. denies pain, resting in bed, call hardin in reach
[2020-09-12] MEDS: Remdesivir 100 MG in 0.9 % Sodium Chloride 230 ML 115 MG IV (19:39)
[2020-09-12] MEDS: Famotidine 20 MG TABLET PO (19:40)
[2020-09-12 20:00] VITALS: BP 134/70; PULSE 77; RESP 20; TEMP 36.1; O2SAT 99
[2020-09-12 20:57] LABS: Glucose, Whole Blood 288 mg/dL (60-115)
[2020-09-12] MEDS: Enoxaparin Sodium 40 MG/0.4 ML SYRINGE SUBCUT (21:40)
[2020-09-12] MEDS: Insulin Glargine,Hum.rec.anlog 100 UNIT/ML 10 ML VIAL 10 UNIT SUBCUT (21:41)
[2020-09-12] MEDS: Azithromycin 500 MG TABLET PO (21:49)
[2020-09-12 23:41] VITALS: BP 138/72; PULSE 83; RESP 20; TEMP 36.6; O2SAT 97
[2020-09-13] VITALS (7 sets, daily range): BP systolic 127–153; BP diastolic 55–77; PULSE 69–84; RESP 18–20; TEMP 36–36.6; O2SAT 95–100
[2020-09-13 06:35] LABS: MANUAL DIFF FLAG NO
[2020-09-13 06:48] LABS: Basophils Percent Auto 0.1 % (0-2); Hematocrit 42.6 % (42-52); Hemoglobin 13.9 g/dl (14.0-18.0); Imm Gran Abs Auto 0.06 X10*3/uL (0.00-0.03); Imm Gran Pct Auto 0.5 % (0.0-0.4); Lymphocytes Percent Auto 8.8 % (20-40); Mean Corpuscular HGB Conc 32.6 g/dl (31.0-36.0); Mean Corpuscular Hemoglobin 27.4 pg (27.0-33.0); Mean Corpuscular Volume 83.9 fL (80-98); Monocytes Absolute Auto 0.3 X10*3/uL (0.1-1.2); Monocytes Percent Auto 2.2 % (2-11); Neutrophils Absolute Auto 10.4 X10*3/uL (2.0-8.3); Neutrophils Percent Auto 88.4 % (45-73); Platelet Count 229 X10*3/uL (160-400); Red Blood Count 5.08 X10*6/uL (4.60-5.80); Red Cell Distribution Width 14.5 % (11.0-16.0); White Blood Count 11.8 X10*3/uL (4.8-10.8)
[2020-09-13 07:11] LABS: Anion Gap 19 (12-20); Blood Urea Nitrogen 27 mg/dL (9-16); Calcium 7.7 mg/dL (8.4-10.2); Carbon Dioxide 19 mmol/L (22-29); Chloride 105 mmol/L (96-108); Creatinine Clr Calc Pharmacy 43.6; Estimated Glomerular Filt Rate 45; Glucose Random 298 mg/dL (60-115); Lactate Dehydrogenase 334 U/L (118-273); Potassium 3.5 mmol/L (3.3-5.1); Sodium 139 mmol/L (135-145)
[2020-09-13 07:18] LABS: Glucose, Whole Blood 286 mg/dL (60-115)
[2020-09-13 07:31] LABS: Ferritin 547 ng/mL (20-250)
[2020-09-13] MEDS: Zinc Sulfate 220 MG CAPSULE PO (07:51)
[2020-09-13] MEDS: Insulin Lispro 100 UNIT/ML 3 ML VIAL SUBCUT ×4 (07:51→21:28)
[2020-09-13] MEDS: Ascorbic Acid 500 MG TABLET PO (07:51)
[2020-09-13] MEDS: 0.9 % Sodium Chloride Flush 3 ML SYRINGE IVFLUSH ×2 (07:51→11:17)
[2020-09-13] MEDS: Cholecalciferol (Vitamin D3) 10 MCG TABLET 20 MCG PO (07:51)
--- NOTE | 2020-09-13 09:37 | HO.PM.IMPN ---
Subjective Subjective Date of Service: 09/13/20 <Jaida Ramirez NP - Last Filed: 09/13/20 09:44> 09/13/20 <Curtis Tinoco MD - Last Filed: 09/13/20 15:35> Interval History: Follow up covid 19 pneumonia. No pain or trouble breathing. <Jaida Ramirez NP - Last Filed: 09/13/20 09:44> Physical Exam Vital Signs: Vital Signs: Last Vital Signs Temp 97.1 F 09/13/20 07:35 Pulse 84 09/13/20 07:35 Resp 18 09/13/20 07:35 BP 153/77 H 09/13/20 07:35 Pulse Ox 98 09/13/20 07:35 Body Mass Index 29.2 <Jaida Ramirez NP - Last Filed: 09/13/20 09:44> Appearing in no acute distress lung sounds normal expansion heart regular rate rhythm positive bowel sounds, abdomen is soft, nontender neuro patient is alert x3, no focal deficits <Jaida Ramirez NP - Last Filed: 09/13/20 09:44> Objective Data Current Medications Generic Name Dose Route Start Last Admin Trade Name Freq PRN Reason Stop Dose Admin Acetaminophen 650 mg 09/11/20 21:12 Acetaminophen 325 Mg Tablet PO Q6H PRN Pain, Mild (Pain Scale 1-3) Albuterol Sulfate 4 puff 09/11/20 21:05 Albuterol Sulfate 90 Mcg 8 Gm Inhaler INHALE Q2H PRN Shortness of Breath/Wheezing Ascorbic Acid 500 mg 09/12/20 09:00 09/13/20 07:51 Ascorbic Acid 500 Mg Tablet PO 500 mg DAILY [facility] Administration Azithromycin 500 mg 09/11/20 22:00 09/12/20 21:49 Azithromycin 500 Mg Tablet PO 500 mg Q24H [facility] Administration Docusate Sodium 100 mg 09/11/20 21:12 Docusate Sodium 100 Mg Capsule PO DAILY PRN Constipation Enoxaparin Sodium 40 mg 09/11/20 22:00 09/12/20 21:40 Enoxaparin Sodium 40 Mg/0.4 Ml Syringe SUBCUT 40 mg Q24H [facility] Administration Famotidine 20 mg 09/12/20 21:00 09/12/20 19:40 Famotidine 20 Mg Tablet PO 20 mg BEDTIME [facility] Administration Remdesivir 100 mg/ Sodium 230 mls @ 115 mls/hr 09/12/20 21:00 09/12/20 21:40 Chloride IV 09/15/20 22:59 Infused Q24H [facility] Infusion Insulin Glargine 10 unit 09/12/20 21:00 09/12/20 21:41 Insulin Glargine,Hum.Rec.Anlog 100 Unit/Ml 10 Ml Vial SUBCUT 10 unit BEDTIME [facility] Administration Insulin Human Lispro 0 unit 09/12/20 07:30 09/13/20 07:51 Insulin Lispro 100 Unit/Ml 3 Ml Vial SUBCUT 6 unit QIDACHS COUNTS INCLUDE 234 BEDS AT [facility] Administration Protocol Methylprednisolone Sodium Succinate 80 mg 09/11/20 22:00 09/12/20 21:41 Methylprednisolone Sod Succ 125 Mg/2 Ml Vial IVPUSH 80 mg Q12H [facility] Administration Senna 17.2 mg 09/11/20 21:12 Sennosides 8.6 Mg Tablet PO BEDTIME PRN Constipation Sodium Chloride 3 ml 09/12/20 00:00 09/13/20 07:51 0.9 % Sodium Chloride Flush 3 Ml Syringe IVFLUSH 3 ml QSHIFT COUNTS INCLUDE 234 BEDS AT [facility] Administration Vitamin D 20 mcg 09/12/20 09:00 09/13/20 07:51 Cholecalciferol (Vitamin D3) 10 Mcg Tablet PO 20 mcg DAILY [facility] Administration Zinc Sulfate 220 mg 09/12/20 09:00 09/13/20 07:51 Zinc Sulfate 220 Mg Capsule PO 220 mg DAILY [facility] Administration <Jaida Ramirez NP - Last Filed: 09/13/20 09:44> Labs CBC & Chem 7: : 09/13/20 06:01 09/13/20 06:01 <Jaida Ramirez NP - Last Filed: 09/13/20 09:44> Microbiology Microbiology Results: Microbiology 09/11/20 18:06 Blood - Venous Blood Culture - Preliminary No growth after 24 hours. 09/11/20 17:55 Blood - Venous Blood Culture - Preliminary No growth after 24 hours. <Jaida Ramirez NP - Last Filed: 09/13/20 09:44> Assessment and Plan (1) COVID-19: Status: Acute <Jaida Ramirez NP - Last Filed: 09/13/20 09:44> Assessment and Plan: 79-year-old male with a past medical history of hypertension, hyperlipidemia, diabetes, coronary artery disease, CKD, CHF with EF of 40% presented to the hospital with a chief complaint of fevers and chills. Patient is COVID-19 positive. Chest x-ray showed COVID-19 pneumonia. COVID-19 pneumonia. No hypoxia noted, fever of 103 yesterday no fever today. Patients daughter, Dr. Gonzalez requested that the [facility] protocol be used for covid management. -Ferritin 547 slightly up today, LDH 334 trending down , procal 0.42. Trend -Solumedrol 80mg Q12h will change to decadron as per pulmonology -Stop azithromycin to Doxycycline -ID following rec remdesivir -pulmonology following -Continue on vitamin D, C, zinc -Supplemental oxygen as needed, wean down sats 98-100 on 2 liters -[place] Diabetes -sliding scale -lantus -ADA diet Mild DC on CKD with proteinuria -treng down -Urine total protein, albumin added -Avoid nephrotoxins. CHF. No exacerbation continue home medications. DVT prophylaxis with Lovenox Attending: Dr. Tinoco <Jaida Ramirez NP - Last Filed: 09/13/20 09:44> (2) Acute respiratory disease due to 2019 novel coronavirus: Status: Acute <Jaida Ramirez NP - Last Filed: 09/13/20 09:44> Assessment and Plan: Attending Attestation: Patient seen and examined independently and I was present during romano portion of E/M service. Agree with Tod Ramirez NP's history, physical, assessment, and plan. Seen this afternoon with c d stripper services. Pt reports he feels well and thanks us for our hard work. Denies any fevers or chills. Breathing easy. <Curtis Tinoco MD - Last Filed: 09/13/20 15:35>
[2020-09-13 11:08] LABS: Glucose, Whole Blood 288 mg/dL (60-115)
[2020-09-13] MEDS: Doxycycline Hyclate 100 MG in 0.9 % Sodium Chloride 250 ML 166.67 MG IV (11:17)
--- NOTE | 2020-09-13 13:54 | MHC.CM.PN ---
CM spoke to Pts daughter, Corinne ([phone]) who reports the pt lives with her and several other family members and he is never alone. she reports they privately pay for a FUNDR[employer]ISING [employer]ULT[employer] from 0900 to 1400 hours on weekdays and then she gets home from work at 1600 hours. She reports her brother is there as well so the pt is not home between 1400 and 1600 hours. She reports the pt does not have Medicare as his 5 year residency will be this year, they will apply at that time. She reports the pt usually does not use DME but does have a cane in case he needs it. She reports they hope that the pt will be able to return home soon as he has never been alone and the family is worried. They are not interested in any STR. Current DC plan is home with resumption of private pay and family care family will transport
--- NOTE | 2020-09-13 14:49 | P.PNPL_ITS ---
Subjective Subjective Date of Service: 09/13/20 Principal diagnosis: COVID-19 Interval history: 79-year-old gentleman with underlying diabetes, hypertension, coronary artery disease, CKD, systolic CHF with EF of 40% admitted on 09/11/2020 with COVID-19 maintain O2 saturation of 94% on room air. Treated with doxycycline and Decadron. Objective Data Labs CBC & Chem 7: 09/13/20 06:01 09/13/20 06:01 Labs: Laboratory Results - last 24 hr 09/12/20 09/12/20 09/13/20 16:31 20:53 06:01 WBC 11.8 H RBC 5.08 Hgb 13.9 L Hct 42.6 MCV 83.9 MCH 27.4 MCHC 32.6 RDW 14.5 Plt Count 229 MPV 12.0 Immature Gran % (Auto) 0.5 H Neut % (Auto) 88.4 H Lymph % (Auto) 8.8 L [place] % (Auto) 2.2 Eos % (Auto) 0.0 Baso % (Auto) 0.1 Lymph # (Auto) 1.0 L [place] # (Auto) 0.3 Eos # (Auto) 0.0 Baso # (Auto) 0.0 Abs Immat Gran (auto) 0.06 H Absolute Neuts (auto) 10.4 H Absolute Nucleated RBC 0.000 Nucleated RBC % (auto) 0.0 Sodium Potassium Chloride Carbon Dioxide Anion Gap BUN Creatinine Estim Creat Clear Calc Estimated GFR POC Glucose 311 H 288 H Random Glucose Calcium Ferritin Lactate Dehydrogenase 09/13/20 09/13/20 09/13/20 06:01 07:13 11:03 WBC RBC Hgb Hct MCV MCH MCHC RDW Plt Count MPV Immature Gran % (Auto) Neut % (Auto) Lymph % (Auto) [place] % (Auto) Eos % (Auto) Baso % (Auto) Lymph # (Auto) [place] # (Auto) Eos # (Auto) Baso # (Auto) Abs Immat Gran (auto) Absolute Neuts (auto) Absolute Nucleated RBC Nucleated RBC % (auto) Sodium 139 Potassium 3.5 D Chloride 105 Carbon Dioxide 19 L Anion Gap 19 BUN 27 H Creatinine 1.52 H Estim Creat Clear Calc 43.6 Estimated GFR 45 POC Glucose 286 H 288 H Random Glucose 298 H Calcium 7.7 L D Ferritin 547 H Lactate Dehydrogenase 334 H Microbiology Microbiology Results: Microbiology 09/11/20 18:06 Blood - Venous Blood Culture - Preliminary No growth after 24 hours. 09/11/20 17:55 Blood - Venous Blood Culture - Preliminary No growth after 24 hours. Review of Systems Cardiovascular: Denies dyspnea Respiratory: Reports cough, Denies excessive phlegm production and Denies dyspnea Physical Exam Vital Signs: Vital Signs: Last Vital Signs Temp 97 F 09/13/20 11:20 Pulse 74 09/13/20 11:20 Resp 18 09/13/20 11:20 BP 132/55 L 09/13/20 11:20 Pulse Ox 95 09/13/20 11:38 Body Mass Index 29.2 Const: General: no acute distress, alert and awake Eyes: Sclerae: sclerae normal EOM: EOMs intact bilaterally Neck: Neck: Yes no lymphadenopathy, Yes trachea midline and Yes supple Resp: Effort & Inspection: normal respiratory effort and no respiratory dist ress Auscultation: crackles (Mild bibasilar) Cardio: Rate: regular rate Rhythm: regular rhythm Heart sounds: no gallops, no murmurs and no rubs GI: Palpation (GI): Soft to palpation and Other GI palpation findings present ( Nontender) Auscultation: normal bowel sounds Extrem: General: Yes no pedal edema, No clubbing and No cyanosis Assessment and Plan Assessment and plan (1) COVID-19: Status: Acute Assessment and Plan: Impression: COVID-19, normoxemic on room air. Recommendation: Agree with Decadron, if patient remains hospitalized. Time Spent With Patient Time with patient: 15 - 24 minutes
[2020-09-13 16:17] LABS: Glucose, Whole Blood 323 mg/dL (60-115)
[2020-09-13 19:55] LABS: Glucose, Whole Blood 390 mg/dL (60-115)
[2020-09-13] MEDS: Famotidine 20 MG TABLET PO (21:28)
[2020-09-13] MEDS: Enoxaparin Sodium 40 MG/0.4 ML SYRINGE SUBCUT (21:29)
[2020-09-13] MEDS: Insulin Glargine,Hum.rec.anlog 100 UNIT/ML 10 ML VIAL 10 UNIT SUBCUT (21:29)
[2020-09-13] MEDS: Remdesivir 100 MG in 0.9 % Sodium Chloride 230 ML 115 MG IV (21:29)
--- NOTE | 2020-09-13 21:52 | P.PNNP_ITS ---
Subjective Subjective Date of Service: 09/13/20 Principal diagnosis: COVID-19 Interval history: Follow up covid 19 pneumonia. No CP Mild SOB Physical Exam Vital Signs: Vital Signs: Last Vital Signs Temp 97.8 F 09/13/20 19:24 Pulse 80 09/13/20 19:24 Resp 20 09/13/20 19:24 BP 138/70 09/13/20 19:24 Pulse Ox 98 09/13/20 19:24 Body Mass Index 29.2 Const: General: cooperative and no acute distress Resp: Effort & Inspection: normal respiratory effort Auscultation: clear to auscultation bilaterally Cardio: Jugular venous distension: no JVD Rate: regular rate Heart sounds: S1 normal heart sound present and S2 normal heart sound present GI: Inspection: Yes normal to inspection Percussion: Yes normal to percussion Auscultation: normal bowel sounds Extrem: Other: No pitting edema Objective Data Labs CBC & Chem 7: 09/13/20 06:01 09/13/20 06:01 Labs: Laboratory Results - last 24 hr 09/13/20 09/13/20 09/13/20 06:01 06:01 07:13 WBC 11.8 H RBC 5.08 Hgb 13.9 L Hct 42.6 MCV 83.9 MCH 27.4 MCHC 32.6 RDW 14.5 Plt Count 229 MPV 12.0 Immature Gran % (Auto) 0.5 H Neut % (Auto) 88.4 H Lymph % (Auto) 8.8 L [place] % (Auto) 2.2 Eos % (Auto) 0.0 Baso % (Auto) 0.1 Lymph # (Auto) 1.0 L [place] # (Auto) 0.3 Eos # (Auto) 0.0 Baso # (Auto) 0.0 Abs Immat Gran (auto) 0.06 H Absolute Neuts (auto) 10.4 H Absolute Nucleated RBC 0.000 Nucleated RBC % (auto) 0.0 Sodium 139 Potassium 3.5 D Chloride 105 Carbon Dioxide 19 L Anion Gap 19 BUN 27 H Creatinine 1.52 H Estim Creat Clear Calc 43.6 Estimated GFR 45 POC Glucose 286 H Random Glucose 298 H Calcium 7.7 L D Ferritin 547 H Lactate Dehydrogenase 334 H 09/13/20 09/13/20 09/13/20 11:03 16:13 19:51 WBC RBC Hgb Hct MCV MCH MCHC RDW Plt Count MPV Immature Gran % (Auto) Neut % (Auto) Lymph % (Auto) [place] % (Auto) Eos % (Auto) Baso % (Auto) Lymph # (Auto) [place] # (Auto) Eos # (Auto) Baso # (Auto) Abs Immat Gran (auto) Absolute Neuts (auto) Absolute Nucleated RBC Nucleated RBC % (auto) Sodium Potassium Chloride Carbon Dioxide Anion Gap BUN Creatinine Estim Creat Clear Calc Estimated GFR POC Glucose 288 H 323 H 390 H* Random Glucose Calcium Ferritin Lactate Dehydrogenase Microbiology Microbiology Results: Microbiology 09/11/20 18:06 Blood - Venous Blood Culture - Preliminary No growth after 48 hours. 09/11/20 17:55 Blood - Venous Blood Culture - Preliminary No growth after 48 hours. Assessment & Plan Assessment and plan (1) Acute respiratory disease due to 2019 novel coronavirus: Status: Acute Assessment and Plan: 79-year-old male with a past medical history of hypertension, hyperlipidemia, diabetes, coronary artery disease, CKD, CHF with EF of 40% presented to the hospital with a chief complaint of fevers and chills. Patient is COVID-19 positive. -DC - in the setting of COVID resolving Avoid Nephrotoxins Npo need for IVF -COVID-19 pneumonia as per medical team Will follow Urine tests ox Time Spent With Patient Time: Total time spent is greater than 50% in coordination of care (as documented) at patient's floor/unit and/or counseling patient:
[2020-09-14] MEDS: Doxycycline Hyclate 100 MG in 0.9 % Sodium Chloride 250 ML 166.67 MG IV ×3 (00:47→23:43)
[2020-09-14] MEDS: 0.9 % Sodium Chloride Flush 3 ML SYRINGE IVFLUSH ×3 (03:08→16:23)
[2020-09-14 03:50] VITALS: BP 125/57; PULSE 68; RESP 20; TEMP 36.7; O2SAT 98
[2020-09-14 06:45] LABS: MANUAL DIFF FLAG NO
[2020-09-14 06:55] LABS: Basophils Percent Auto 0.1 % (0-2); Hematocrit 42.7 % (42-52); Hemoglobin 14.2 g/dl (14.0-18.0); Imm Gran Pct Auto 0.8 % (0.0-0.4); Lymphocytes Percent Auto 8.2 % (20-40); Mean Corpuscular HGB Conc 33.3 g/dl (31.0-36.0); Mean Corpuscular Volume 84.1 fL (80-98); Mean Platelet Volume 11.6 fL (9.4-12.4); Monocytes Absolute Auto 0.4 X10*3/uL (0.1-1.2); Monocytes Percent Auto 3.5 % (2-11); Neutrophils Absolute Auto 11.1 X10*3/uL (2.0-8.3); Neutrophils Percent Auto 87.4 % (45-73); Platelet Count 228 X10*3/uL (160-400); Red Blood Count 5.08 X10*6/uL (4.60-5.80); Red Cell Distribution Width 14.6 % (11.0-16.0); White Blood Count 12.7 X10*3/uL (4.8-10.8)
[2020-09-14 07:16] LABS: Anion Gap 13 (12-20); Blood Urea Nitrogen 28 mg/dL (9-16); Calcium 7.8 mg/dL (8.4-10.2); Carbon Dioxide 23 mmol/L (22-29); Chloride 109 mmol/L (96-108); Creatinine Clr Calc Pharmacy 47.4; Estimated Glomerular Filt Rate 49; Glucose Random 225 mg/dL (60-115); Sodium 141 mmol/L (135-145)
[2020-09-14 07:30] LABS: Lactate Dehydrogenase 395 U/L (118-273)
[2020-09-14 07:34] LABS: Glucose, Whole Blood 204 mg/dL (60-115)
[2020-09-14 07:37] LABS: Ferritin 657 ng/mL (20-250)
[2020-09-14 08:00] VITALS: BP 129/68; PULSE 84; RESP 22; TEMP 36.4; O2SAT 96
[2020-09-14] MEDS: dexAMETHasone sod phosphate 4 MG/ML VIAL 6 MG IVPUSH (08:37)
[2020-09-14] MEDS: Cholecalciferol (Vitamin D3) 10 MCG TABLET 20 MCG PO (08:38)
[2020-09-14] MEDS: Insulin Lispro 100 UNIT/ML 3 ML VIAL SUBCUT ×4 (08:38→20:27)
[2020-09-14] MEDS: Zinc Sulfate 220 MG CAPSULE PO (08:38)
[2020-09-14] MEDS: Ascorbic Acid 500 MG TABLET PO (08:38)
[2020-09-14 11:47] LABS: Glucose, Whole Blood 299 mg/dL (60-115)
[2020-09-14 12:00] VITALS: BP 124/61; PULSE 79; RESP 20; TEMP 36.7; O2SAT 98
--- NOTE | 2020-09-14 14:02 | P.PNIM_ITS ---
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 All questions answered. ROS General - no fevers or chills Cardiovascular - no chest pain Respiratory - no shortness of breath or cough Abdominal- no abdominal pain, nausea, vomiting, diarrhea Physical Exam Vital Signs: Vital Signs: Last Vital Signs Temp 98.0 F 09/14/20 12:00 Pulse 79 09/14/20 12:00 Resp 20 09/14/20 12:00 BP 124/61 09/14/20 12:00 Pulse Ox 98 09/14/20 12:00 Body Mass Index 29.2 Const: Other: General - no acute distress, appears comfortable Cardiovascular - regular rate and rhythm, S1-S2 Lungs - normal respiratory effort, clear to auscultation bilaterally, no wheezing Abdomen - soft, nontender, no rebound or guarding Extremities - no edema bilaterally Neuro - awake and alert, no focal deficits Objective Data Current Medications Generic Name Dose Route Start Last Admin Trade Name Freq PRN Reason Stop Dose Admin Acetaminophen 650 mg 09/11/20 21:12 Acetaminophen 325 Mg Tablet PO Q6H PRN Pain, Mild (Pain Scale 1-3) Albuterol Sulfate 4 puff 09/11/20 21:05 Albuterol Sulfate 90 Mcg 8 Gm Inhaler INHALE Q2H PRN Shortness of Breath/Wheezing Ascorbic Acid 500 mg 09/12/20 09:00 09/14/20 08:38 Ascorbic Acid 500 Mg Tablet PO 500 mg DAILY L[facility]AR Administration Dexamethasone Sodium Phosphate 6 mg 09/14/20 09:00 09/14/20 08:37 Dexamethasone Sod Phosphate 4 Mg/Ml Vial IVPUSH 6 mg DAILY [facility] Administration Docusate Sodium 100 mg 09/11/20 21:12 Docusate Sodium 100 Mg Capsule PO DAILY PRN Constipation Enoxaparin Sodium 40 mg 09/11/20 22:00 09/13/20 21:29 Enoxaparin Sodium 40 Mg/0.4 Ml Syringe SUBCUT 40 mg Q24H [facility] Administration Famotidine 20 mg 09/12/20 21:00 09/13/20 21:28 Famotidine 20 Mg Tablet PO 20 mg BEDTIME L[facility]AR Administration Remdesivir 100 mg/ Sodium 230 mls @ 115 mls/hr 09/12/20 21:00 09/14/20 00:16 Chloride IV 09/15/20 22:59 Infused Q24H [facility] Infusion Doxycycline Hyclate 100 mg/ 250 mls @ 166.67 mls/hr 09/13/20 11:00 09/14/20 13:41 Sodium Chloride IV Infused Q12H [facility] Infusion Insulin Glargine 10 unit 09/12/20 21:00 09/13/20 21:29 Insulin Glargine,Hum.Rec.Anlog 100 Unit/Ml 10 Ml Vial SUBCUT 10 unit BEDTIME [facility] Administration Insulin Human Lispro 0 unit 09/12/20 07:30 09/14/20 12:05 Insulin Lispro 100 Unit/Ml 3 Ml Vial SUBCUT 6 unit QIDACHS [facility] Administration Protocol Senna 17.2 mg 09/11/20 21:12 Sennosides 8.6 Mg Tablet PO BEDTIME PRN Constipation Sodium Chloride 3 ml 09/12/20 00:00 09/14/20 08:39 0.9 % Sodium Chloride Flush 3 Ml Syringe IVFLUSH 3 ml QSHIFT [facility] Administration Vitamin D 20 mcg 09/12/20 09:00 09/14/20 08:38 Cholecalciferol (Vitamin D3) 10 Mcg Tablet PO 20 mcg DAILY [facility] Administration Zinc Sulfate 220 mg 09/12/20 09:00 09/14/20 08:38 Zinc Sulfate 220 Mg Capsule PO 220 mg DAILY [facility]AR Administration Labs CBC & Chem 7: 09/14/20 06:16 09/14/20 06:16 Microbiology Microbiology Results: Microbiology 09/11/20 18:06 Blood - Venous Blood Culture - Preliminary No growth after 48 hours. 09/11/20 17:55 Blood - Venous Blood Culture - Preliminary No growth after 48 hours. Assessment and Plan (1) COVID-19: Status: Acute Assessment and Plan: This is a 79 yo M with a PMH of HTN, HLD, DM, CAD, CKD stage 3 , HFrEF (Last echo 10/2019 with EF 40-45%) who is admitted for: 1. COVID 19 pt off oxygen >24 hours now complete decadron, remdesivir (day 4/5), doxycycyline course continue isolation 2. 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 HFrEF no in failure, euvolemic 4. DM slightly uncontrolled, likely from steroids continue basal + bolus Full Code DVT pptx, Lovenox dispo: anticipate home with services in 2 days after Remdesivir course completed.
--- NOTE | 2020-09-14 14:30 | W.PM.IDCN ---
History of Present Illness Data of Consult Service Date: 09/13/20 Requesting physician: Curtis Tinoco Primary Care Provider: MD OLIVIA Pete Reason for consult: COVID He presents with shortness of breath He has no nausea or vomiting He has had shortness of breath for a week He is on oxygen, 2 liters Review of Systems Review of Systems: Yes all other systems are reviewed and are negative [facility] Past Medical History Medical History Type 2 diabetes mellitus with hyperglycemia Social History Social History Household Members: Family Housing: House Alcohol intake: never Smoking Status: Never smoker service: No Current occupational status: retired Meds Allergies Allergy/AdvReac Type Severity Reaction Status Date / Time ciprofloxacin [Cipro] Allergy Unknown Verified 11/12/19 00:00 Active Medications: Current Medications Generic Name Dose Route Start Last Admin Trade Name Freq PRN Reason Stop Dose Admin Acetaminophen 650 mg 09/11/20 21:12 Acetaminophen 325 Mg Tablet PO Q6H PRN Pain, Mild (Pain Scale 1-3) Albuterol Sulfate 4 puff 09/11/20 21:05 Albuterol Sulfate 90 Mcg 8 Gm Inhaler INHALE Q2H PRN Shortness of Breath/Wheezing Ascorbic Acid 500 mg 09/12/20 09:00 09/14/20 08:38 Ascorbic Acid 500 Mg Tablet PO 500 mg DAILY LAMAR Administration Dexamethasone Sodium Phosphate 6 mg 09/14/20 09:00 09/14/20 08:37 Dexamethasone Sod Phosphate 4 Mg/Ml Vial IVPUSH 6 mg DAILY [facility] Administration Docusate Sodium 100 mg 09/11/20 21:12 Docusate Sodium 100 Mg Capsule PO DAILY PRN Constipation Enoxaparin Sodium 40 mg 09/11/20 22:00 09/13/20 21:29 Enoxaparin Sodium 40 Mg/0.4 Ml Syringe SUBCUT 40 mg Q24H [facility] Administration Famotidine 20 mg 09/12/20 21:00 09/13/20 21:28 Famotidine 20 Mg Tablet PO 20 mg BEDTIME LAMAR Administration Remdesivir 100 mg/ Sodium 230 mls @ 115 mls/hr 09/12/20 21:00 09/14/20 00:16 Chloride IV 09/15/20 22:59 Infused Q24H [facility] Infusion Doxycycline Hyclate 100 mg/ 250 mls @ 166.67 mls/hr 09/13/20 11:00 09/14/20 13:41 Sodium Chloride IV Infused Q12H [facility] Infusion Insulin Glargine 10 unit 09/12/20 21:00 09/13/20 21:29 Insulin Glargine,Hum.Rec.Anlog 100 Unit/Ml 10 Ml Vial SUBCUT 10 unit BEDTIME LAMAR Administration Insulin Human Lispro 0 unit 09/12/20 07:30 09/14/20 12:05 Insulin Lispro 100 Unit/Ml 3 Ml Vial SUBCUT 6 unit QIDACHS [facility] Administration Protocol Senna 17.2 mg 09/11/20 21:12 Sennosides 8.6 Mg Tablet PO BEDTIME PRN Constipation Sodium Chloride 3 ml 09/12/20 00:00 09/14/20 08:39 0.9 % Sodium Chloride Flush 3 Ml Syringe IVFLUSH 3 ml QSHIFT [facility] Administration Vitamin D 20 mcg 09/12/20 09:00 09/14/20 08:38 Cholecalciferol (Vitamin D3) 10 Mcg Tablet PO 20 mcg DAILY [facility] Administration Zinc Sulfate 220 mg 09/12/20 09:00 09/14/20 08:38 Zinc Sulfate 220 Mg Capsule PO 220 mg DAILY [facility] Administration Physical Exam Vital Signs: Vital Signs: Last Vital Signs Temp 98.0 F 09/14/20 12:00 Pulse 79 09/14/20 12:00 Resp 20 09/14/20 12:00 BP 124/61 09/14/20 12:00 Pulse Ox 98 09/14/20 12:00 Body Mass Index 29.2 Const: General: cooperative HENMT: Head: Yes normal to inspection Mouth: Normal oral and palatal mucosa present Eyes: General: appearance normal, both eyes and all related structures Resp: Effort & Inspection: normal respiratory effort Cardio: Rate: regular rate Rhythm: regular rhythm GI: Palpation (GI): nontender Skin: General skin exam: no rashes or lesions noted Extrem: General: Yes normal to inspection Results Labs CBC & Chem 7: 09/14/20 06:16 09/15/20 12:37 Labs: Short CBC 09/14/20 Range/Units 06:16 WBC 12.7 H (4.8-10.8) X10*3/uL Hgb 14.2 (14.0-18.0) g/dl Hct 42.7 (42-52) % Plt Count 228 (160-400) X10*3/uL BMP 09/14/20 06:16 Sodium 141 Potassium 4.0 Chloride 109 H Carbon Dioxide 23 BUN 28 H Creatinine 1.40 Calcium 7.8 L Microbiology Microbiology Results: Microbiology 09/11/20 18:06 Blood - Venous Blood Culture - Preliminary No growth after 48 hours. 09/11/20 17:55 Blood - Venous Blood Culture - Preliminary No growth after 48 hours. Assessment and Plan (1) COVID-19: Status: Acute Continue oxygen as needed Remdesivir per protocol Steroids per protocol (2) Hypoxia: Status: Acute
[2020-09-14 15:58] VITALS: BP 160/75; PULSE 78; RESP 19; TEMP 36; O2SAT 97
[2020-09-14 16:36] LABS: Glucose, Whole Blood 320 mg/dL (60-115)
[2020-09-14 20:00] VITALS: BP 150/75; PULSE 69; RESP 19; TEMP 36.6; O2SAT 96
[2020-09-14 20:10] LABS: Glucose, Whole Blood 381 mg/dL (60-115)
[2020-09-14] MEDS: Famotidine 20 MG TABLET PO (20:27)
[2020-09-14] MEDS: Insulin Glargine,Hum.rec.anlog 100 UNIT/ML 10 ML VIAL 10 UNIT SUBCUT (20:27)
[2020-09-14] MEDS: Remdesivir 100 MG in 0.9 % Sodium Chloride 230 ML 115 MG IV (21:31)
[2020-09-14] MEDS: Enoxaparin Sodium 40 MG/0.4 ML SYRINGE SUBCUT (21:34)
--- NOTE | 2020-09-14 23:09 | PM.PNNEP ---
Subjective Subjective Date of Service: 09/14/20 Principal diagnosis: COVID-19 Interval history: seen and examined this Feels better No CP ROS General - no fevers or chills Cardiovascular - no chest pain Respiratory - no shortness of breath or cough Abdominal- no abdominal pain, nausea, vomiting, diarrhea Physical Exam Vital Signs: Vital Signs: Last Vital Signs Temp 97.9 F 09/14/20 20:00 Pulse 69 09/14/20 20:00 Resp 19 09/14/20 20:00 BP 150/75 H 09/14/20 20:00 Pulse Ox 96 09/14/20 20:00 Body Mass Index 29.2 Const: General: cooperative and no acute distress Resp: Effort & Inspection: normal respiratory effort Auscultation: clear to auscultation bilaterally Cardio: Jugular venous distension: no JVD Rate: regular rate Heart sounds: S1 normal heart sound present and S2 normal heart sound present GI: Inspection: Yes normal to inspection Percussion: Yes normal to percussion Auscultation: normal bowel sounds Extrem: Other: No pitting edema Objective Data Labs CBC & Chem 7: 09/14/20 06:16 09/14/20 06:16 Labs: Laboratory Results - last 24 hr 09/14/20 09/14/20 09/14/20 06:16 06:16 07:29 WBC 12.7 H RBC 5.08 Hgb 14.2 Hct 42.7 MCV 84.1 MCH 28.0 MCHC 33.3 RDW 14.6 Plt Count 228 MPV 11.6 Immature Gran % (Auto) 0.8 H Neut % (Auto) 87.4 H Lymph % (Auto) 8.2 L [place] % (Auto) 3.5 Eos % (Auto) 0.0 Baso % (Auto) 0.1 Lymph # (Auto) 1.0 L [place] # (Auto) 0.4 Eos # (Auto) 0.0 Baso # (Auto) 0.0 Abs Immat Gran (auto) 0.10 H Absolute Neuts (auto) 11.1 H Absolute Nucleated RBC 0.000 Nucleated RBC % (auto) 0.0 Sodium 141 Potassium 4.0 Chloride 109 H Carbon Dioxide 23 Anion Gap 13 BUN 28 H Creatinine 1.40 Estim Creat Clear Calc 47.4 Estimated GFR 49 POC Glucose 204 H Random Glucose 225 H Calcium 7.8 L Ferritin 657 H Lactate Dehydrogenase 395 H 09/14/20 09/14/20 09/14/20 11:42 16:01 20:03 WBC RBC Hgb Hct MCV MCH MCHC RDW Plt Count MPV Immature Gran % (Auto) Neut % (Auto) Lymph % (Auto) [place] % (Auto) Eos % (Auto) Baso % (Auto) Lymph # (Auto) [place] # (Auto) Eos # (Auto) Baso # (Auto) Abs Immat Gran (auto) Absolute Neuts (auto) Absolute Nucleated RBC Nucleated RBC % (auto) Sodium Potassium Chloride Carbon Dioxide Anion Gap BUN Creatinine Estim Creat Clear Calc Estimated GFR POC Glucose 299 H 320 H 381 H* Random Glucose Calcium Ferritin Lactate Dehydrogenase Microbiology Microbiology Results: Microbiology 09/11/20 18:06 Blood - Venous Blood Culture - Preliminary No growth after 48 hours. 09/11/20 17:55 Blood - Venous Blood Culture - Preliminary No growth after 48 hours. Assessment & Plan Assessment and plan (1) COVID-19: Status: Acute Assessment and Plan: R (2) Hypoxia: Status: Acute Assessment and Plan: 79-year-old male with a past medical history of hypertension, hyperlipidemia, diabetes, coronary artery disease, CKD, CHF with EF of 40% presented to the hospital with a chief complaint of fevers and chills. Patient is COVID-19 positive. -DC - in the setting of COVID resolving- Cr is 1.4 Avoid Nephrotoxins Npo need for IVF -COVID-19 pneumonia as per medical team Time Spent With Patient Time: Total time spent is greater than 50% in coordination of care (as documented) at patient's floor/unit and/or counseling patient:
[2020-09-15] VITALS (7 sets, daily range): BP systolic 132–161; BP diastolic 62–77; PULSE 62–88; RESP 18–20; TEMP 36.4–37; O2SAT 96–98
[2020-09-15] MEDS: 0.9 % Sodium Chloride Flush 3 ML SYRINGE IVFLUSH ×4 (00:33→23:48)
[2020-09-15 07:02] LABS: Lactate Dehydrogenase 352 U/L (118-273)
[2020-09-15 07:16] LABS: Ferritin 496 ng/mL (20-250)
[2020-09-15 07:33] LABS: Glucose, Whole Blood 202 mg/dL (60-115)
--- NOTE | 2020-09-15 07:36 | P.CDIC_ITS ---
CDI Concurrent Query Service Date: 09/15/20 Documentation Clarification: Please clarify if you are treating a proba ble/suspected/likely or confirmed: Acute Hypoxic Respiratory Failure No Acute Hypoxic Respiratory Failure No Acute Hyopxic Resp. Failure Provider Response: Other Other Diagnosis: see above PLEASE DO NOT DELETE/MODIFY EXISTING CONTENT Additional information is needed in order to code to the highest accuracy and appropriate Severity of Illness (SOI). Please clarify the information noted below in your progress notes and discharge summary. Risk Factors/Clinical Indicators/Treatments 79 year old male admitted with Acute COVID-19, COVID Pneumonia, DC on CKD 3b. T103 - 97.7, P 68, R 28 - 18, BP 125/70 SAT 95% room air, 91 - 92 % while sleeping Per ID consult: recommend Redemsivir, has been using oxygen, Acute Hypoxia CDS: Crystal Noel RN Contact Number: [phone] Please Review the information above and exercise your independent professional judgment in responding to the query. If you concur, pleas document in the PROGRESS NOTES and DISCHARGE SUMMARY. If you do not agree with the query, please document in the query above. THIS QUERY IS PART OF THE PERMANENT MEDICAL RECORD
[2020-09-15] MEDS: dexAMETHasone sod phosphate 4 MG/ML VIAL 6 MG IVPUSH (08:32)
[2020-09-15] MEDS: Cholecalciferol (Vitamin D3) 10 MCG TABLET 20 MCG PO (08:32)
[2020-09-15] MEDS: Zinc Sulfate 220 MG CAPSULE PO (08:32)
[2020-09-15] MEDS: Insulin Lispro 100 UNIT/ML 3 ML VIAL SUBCUT ×4 (08:32→20:59)
[2020-09-15] MEDS: Ascorbic Acid 500 MG TABLET PO (08:32)
--- NOTE | 2020-09-15 11:20 | HO.PM.IMPN ---
Subjective Subjective Date of Service: 09/15/20 Interval History: Follow up covid 19. No shortness of breath. Physical Exam Vital Signs: Vital Signs: Last Vital Signs Temp 97.7 F 09/15/20 08:00 Pulse 69 09/15/20 08:00 Resp 20 09/15/20 08:00 BP 132/62 09/15/20 08:00 Pulse Ox 96 09/15/20 08:00 Body Mass Index 29.2 Appearing in no acute distress lung sounds are clear to auscultation heart regular rate rhythm, clear S1, S2 positive bowel sounds, abdomen is soft, nontender neuro patient is alert x3, no focal deficits Objective Data Current Medications Generic Name Dose Route Start Last Admin Trade Name Freq PRN Reason Stop Dose Admin Acetaminophen 650 mg 09/11/20 21:12 Acetaminophen 325 Mg Tablet PO Q6H PRN Pain, Mild (Pain Scale 1-3) Albuterol Sulfate 4 puff 09/11/20 21:05 Albuterol Sulfate 90 Mcg 8 Gm Inhaler INHALE Q2H PRN Shortness of Breath/Wheezing Ascorbic Acid 500 mg 09/12/20 09:00 09/15/20 08:32 Ascorbic Acid 500 Mg Tablet PO 500 mg DAILY LAMAR Administration Dexamethasone Sodium Phosphate 6 mg 09/14/20 09:00 09/15/20 08:32 Dexamethasone Sod Phosphate 4 Mg/Ml Vial IVPUSH 6 mg DAILY LAMAR Administration Docusate Sodium 100 mg 09/11/20 21:12 Docusate Sodium 100 Mg Capsule PO DAILY PRN Constipation Enoxaparin Sodium 40 mg 09/11/20 22:00 09/14/20 21:34 Enoxaparin Sodium 40 Mg/0.4 Ml Syringe SUBCUT 40 mg Q24H [facility] Administration Famotidine 20 mg 09/12/20 21:00 09/14/20 20:27 Famotidine 20 Mg Tablet PO 20 mg BEDTIME LAMAR Administration Remdesivir 100 mg/ Sodium 230 mls @ 115 mls/hr 09/12/20 21:00 09/14/20 23:51 Chloride IV 09/15/20 22:59 Infused Q24H [facility] Infusion Doxycycline Hyclate 100 mg/ 250 mls @ 166.67 mls/hr 09/13/20 11:00 09/15/20 02:30 Sodium Chloride IV Infused Q12H [facility] Infusion Insulin Glargine 10 unit 09/12/20 21:00 09/14/20 20:27 Insulin Glargine,Hum.Rec.Anlog 100 Unit/Ml 10 Ml Vial SUBCUT 10 unit BEDTIME [facility] Administration Insulin Human Lispro 0 unit 09/12/20 07:30 09/15/20 08:32 Insulin Lispro 100 Unit/Ml 3 Ml Vial SUBCUT 4 unit QIDACHS [facility] Administration Protocol Senna 17.2 mg 09/11/20 21:12 Sennosides 8.6 Mg Tablet PO BEDTIME PRN Constipation Sodium Chloride 3 ml 09/12/20 00:00 09/15/20 08:45 0.9 % Sodium Chloride Flush 3 Ml Syringe IVFLUSH 3 ml QSHIFT [facility] Administration Vitamin D 20 mcg 09/12/20 09:00 09/15/20 08:32 Cholecalciferol (Vitamin D3) 10 Mcg Tablet PO 20 mcg DAILY [facility] Administration Zinc Sulfate 220 mg 09/12/20 09:00 09/15/20 08:32 Zinc Sulfate 220 Mg Capsule PO 220 mg DAILY [facility] Administration Labs CBC & Chem 7: 09/14/20 06:16 09/15/20 12:37 Microbiology Microbiology Results: Microbiology 09/11/20 18:06 Blood - Venous Blood Culture - Preliminary No growth after 48 hours. 09/11/20 17:55 Blood - Venous Blood Culture - Preliminary No growth after 48 hours. Assessment and Plan (1) COVID-19: Status: Acute Assessment and Plan: This is a 79 yo M with a PMH of HTN, HLD, DM, CAD, CKD stage 3 , HFrEF (Last echo 10/2019 with EF 40-45%) who is admitted for: COVID 19 pt off oxygen >24 hours now complete decadron and doxycycline remdesivir last dose today oxycycyline course continue isolation VTACH. Had 14 beat run of vtach while sleeping check lytes and mag get echocardiogram. 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 No overt failure. DM slightly uncontrolled, likely from steroids continue basal + bolus Full Code DVT pptx, Lovenox Dispo: Anticipate home with services. Likely tomorrow Attending: Dr. Tinoco
[2020-09-15 12:09] LABS: Glucose, Whole Blood 333 mg/dL (60-115)
[2020-09-15] MEDS: Doxycycline Hyclate 100 MG in 0.9 % Sodium Chloride 250 ML 166.67 MG IV ×2 (12:18→22:14)
--- NOTE | 2020-09-15 13:06 | PC.NURSE ---
Patient had 18 beat run of vtach. Asymptomatic. Patient sleeping. No chest pain. Jaida notified and stat labs ordered as well as echo.
--- NOTE | 2020-09-15 13:21 | MHC.CM.PN ---
DP MALE 79 COVID+ Anticipate DC tomorrow. P.T. has evaluated the Pt. VTACH 14 BEATS will sleeping. DC to home with Family assist [employer]. The family will provide transportation.
[2020-09-15 13:50] LABS: Anion Gap 14 (12-20); Blood Urea Nitrogen 28 mg/dL (9-16); Calcium 8.3 mg/dL (8.4-10.2); Carbon Dioxide 28 mmol/L (22-29); Chloride 102 mmol/L (96-108); Creatinine Clr Calc Pharmacy 43.3; Estimated Glomerular Filt Rate 44; Glucose Random 363 mg/dL (60-115); Magnesium 2.2 mg/dL (1.6-2.6); Potassium 3.6 mmol/L (3.3-5.1); Sodium 140 mmol/L (135-145)
[2020-09-15 16:23] LABS: Glucose, Whole Blood 296 mg/dL (60-115)
[2020-09-15 20:01] LABS: Glucose, Whole Blood 211 mg/dL (60-115)
[2020-09-15] MEDS: Remdesivir 100 MG in 0.9 % Sodium Chloride 230 ML 115 MG IV (20:08)
[2020-09-15] MEDS: Famotidine 20 MG TABLET PO (20:09)
[2020-09-15] MEDS: Insulin Glargine,Hum.rec.anlog 100 UNIT/ML 10 ML VIAL 10 UNIT SUBCUT (21:00)
--- NOTE | 2020-09-15 22:03 | PM.PNNEP ---
Subjective Subjective Date of Service: 09/15/20 Principal diagnosis: COVID-19 Interval history: Pt is feeling better Renal func is better Physical Exam Vital Signs: Vital Signs: Last Vital Signs Temp 97.7 F 09/15/20 19:12 Pulse 62 09/15/20 19:12 Resp 20 09/15/20 19:12 BP 161/77 H 09/15/20 19:12 Pulse Ox 96 09/15/20 19:12 Body Mass Index 29.2 Const: General: cooperative and no acute distress Resp: Effort & Inspection: normal respiratory effort Auscultation: clear to auscultation bilaterally Cardio: Jugular venous distension: no JVD Rate: regular rate Heart sounds: S1 normal heart sound present and S2 normal heart sound present GI: Inspection: Yes normal to inspection Percussion: Yes normal to percussion Auscultation: normal bowel sounds Extrem: Other: No pitting edema Objective Data Labs CBC & Chem 7: 09/14/20 06:16 09/15/20 12:37 Labs: Laboratory Results - last 24 hr 09/15/20 09/15/20 09/15/20 05:36 07:23 12:02 Sodium Potassium Chloride Carbon Dioxide Anion Gap BUN Creatinine Estim Creat Clear Calc Estimated GFR POC Glucose 202 H 333 H Random Glucose Calcium Magnesium Ferritin 496 H Lactate Dehydrogenase 352 H 09/15/20 09/15/20 09/15/20 12:37 16:20 19:57 Sodium 140 Potassium 3.6 Chloride 102 Carbon Dioxide 28 Anion Gap 14 BUN 28 H Creatinine 1.53 H Estim Creat Clear Calc 43.3 Estimated GFR 44 POC Glucose 296 H 211 H Random Glucose 363 H* Calcium 8.3 L D Magnesium 2.2 Ferritin Lactate Dehydrogenase Microbiology Microbiology Results: Microbiology 09/11/20 18:06 Blood - Venous Blood Culture - Preliminary No growth after 48 hours. 09/11/20 17:55 Blood - Venous Blood Culture - Preliminary No growth after 48 hours. Assessment & Plan Assessment and plan (1) COVID-19: Status: Acute Assessment and Plan: 79-year-old male with a past medical history of hypertension, hyperlipidemia, diabetes, coronary artery disease, CKD, CHF with EF of 40% presented to the hospital with a chief complaint of fevers and chills. Patient is COVID-19 positive. -DC - in the setting of COVID resolving- Cr is 1.4 Avoid Nephrotoxins No need for IVF -COVID-19 pneumonia as per medical team Will sign off Time Spent With Patient Time: Total time spent is greater than 50% in coordination of care (as documented) at patient's floor/unit and/or counseling patient:
[2020-09-15] MEDS: Enoxaparin Sodium 40 MG/0.4 ML SYRINGE SUBCUT (22:15)
[2020-09-16] VITALS: BP 162/77; PULSE 64; RESP 18; TEMP 36.6; O2SAT 97
[2020-09-16 03:46] VITALS: BP 126/58; PULSE 63; RESP 20; TEMP 36.5; O2SAT 97
[2020-09-16 07:24] LABS: Glucose, Whole Blood 175 mg/dL (60-115)
[2020-09-16 08:00] VITALS: BP 141/74; PULSE 83; RESP 20; TEMP 36.4; O2SAT 98
--- NOTE | 2020-09-16 08:17 | CA_ITS ---
Transthoracic Echocardiogram Patient (Last, First, Middle): Raul Garnett, Gender: Male Date of : 1940 Age: 79 Procedure Date: 09/16/2020 Procedure Type: Transthoracic Echocardiogram Location: [facility] [place] Height: 172.72 cm Weight: 86.64 kg BSA: 2.00 m2 Heart Rate: bpm BP: 141 / 74 mmHg Tool Honing Machine Set Up Operator: NATHAN Russell MD: Carol [place] Symptoms: run of critical access hospital Study Quality: Fair Conclusions: - The left ventricular systolic function is mildly decreased. The visually estimated ejection fraction is between 40-45%. - There is evidence of regional wall motion abnormalities. - Normal right ventricular cavity size and systolic function. - The left atrium is moderately dilated. - There is moderate dilatation of the ascending aorta. Findings Left Ventricle Normal left ventricular cavity size. There is mildly increased left ventricular wall thickness. The left ventricular systolic function is mildly decreased. The visually estimated ejection fraction is between 40-45%. There is evidence of regional wall motion abnormalities. Abnormal diastolic function is noted. Spectral Doppler is indicative of an impaired relaxation filling pattern. E/E prime ratio is >15, consistent with elevated filling pressures. Wall Motion Rest Echo Findings The apex, apical inferior, apical lateral, apical septum, and mid anteroseptal segments are akinetic. Right Ventricle Normal right ventricular cavity size and systolic function. Atria The left atrium is moderately dilated. The right atrium is normal in size. Aortic Valve There is mild calcification of the aortic valve. There is no aortic valve stenosis. There is no aortic valve regurgitation. Mitral Valve There is mild mitral annular calcification. There is mild mitral valve regurgitation. There is no mitral valve stenosis. Pulmonic Valve The pulmonic valve is likely normal. Tricuspid Valve Normal tricuspid valve structure and function. There is trace tricuspid valve regurgitation. Normal right atrial pressure. There is no evidence of pulmonary hypertension. Great Vessels There is moderate dilatation of the ascending aorta. The visualized portions of the pulmonary artery and branches are normal. Venous The inferior vena cava is normal in size and collapses greater than 50% with inspiration. Pericardium/Pleural There is no evidence of pericardial effusion. Prior Study Comparison No significant change compared to prior study dated: 11/20/2019. Measurements 2D Linear Measurements IVSd: 1.08 0.6-0.9/0.6-1.0 cm LVIDd: 4.89 3.9-5.3/4.2-5.9 cm LVIDd Index: 2.45 2.4-3.2/2.2-3.1 cm/m2 LVIDs: 3.86 2.0-3.6 cm LVPWd: 1.13 0.7-1.1 cm Ao Root: 3.50 2.1-3.5 cm LA Diam: 3.80 2.7-3.8/3.0-4.0 cm LAIDs Index: 1.90 1.5-2.3 cm/m2 LV Mass: 250.62 67-162/88-224 g LV Mass Index: 125.31 43-95/49-115 g/m2 LVOT Diam: 2.20 3.0+(-)1.3 cm 2D Systolic Function EF 4C: 43.70 >55% EF 2C: 43.00 >55% EF BiP: 43.10 >55% Mitral Valve MV Pk E: 0.66 MV PK A: 1.32 MV Decel Time: 259.00 E/A: 0.50 E'Lateral: 5.22 E'Medial: 3.70 E/E' Med: 17.90 E/E' Lat: 12.70 PHT: 76.00 MVA PHT: 2.89 Decel Barrow: 2.55 Aortic Valve AoV Pk Mic: 1.42 AoV Mn Mic: 1.03 AoV VTI: 0.28 AoV Pk Grad: 8.00 Aov Mn Grad: 5.00 MARYLOU Cont.VTI: 2.79 LVOT LVOT Pk Mic: 0.92 LVOT Mn Mic: 0.69 LVOT VTI: 0.21 LVOT Pk Grad: 3.00 LVOT Mn Grad: 2.00 LVOT Diam: 2.20 LVOT Area: 3.80 Diastolic Function MV Pk E: 0.66 MV Pk A: 1.32 E/A: 0.50 E'Medial: 3.70 E/E' Med: 17.90 E' Laterial: 5.22 E/E' Lat: 12.70 Tricuspid Valve TR Pk Mic: 2.81 TR Pk Grad: 32.00 RA Press: 3.00 RVSP: 35.00 Great Vessels Aorta Ao Root-2D: 3.50 2.0-3.7 cm Ao Asc: 4.10 2.1-3.4 cm Ao Arch: 2.90 Updated in Other Vendor System with Status of Final Jermaine Valle MD electronically signed on 09/16/2020 12:45:27 PM with status of Final
[2020-09-16] MEDS: Cholecalciferol (Vitamin D3) 10 MCG TABLET 20 MCG PO (08:24)
[2020-09-16] MEDS: dexAMETHasone sod phosphate 4 MG/ML VIAL 6 MG IVPUSH (08:24)
[2020-09-16] MEDS: Zinc Sulfate 220 MG CAPSULE PO (08:24)
[2020-09-16] MEDS: Ascorbic Acid 500 MG TABLET PO (08:24)
[2020-09-16] MEDS: Insulin Lispro 100 UNIT/ML 3 ML VIAL SUBCUT (08:24)
[2020-09-16] MEDS: 0.9 % Sodium Chloride Flush 3 ML SYRINGE IVFLUSH (08:24)
[2020-09-16 11:03] VITALS: BP 140/66; PULSE 70; RESP 20; TEMP 36.5; O2SAT 96
[2020-09-16 11:43] LABS: Glucose, Whole Blood 258 mg/dL (60-115)
--- NOTE | 2020-09-16 12:14 | P.DS_ITS ---
DS: Providers Provider Date of Service: 09/16/20 Date of admission: 09/11/20 21:12 Primary care physician: Enrico Manuel MD Consults: 09/11/20 21:05 Consult to Infectious Diseases Routine Consulting Provider: Julienne Murcia Reason for consultation: COVID PNA 09/11/20 21:11 Consult to Pulmonology Routine Consulting Provider: Meet Ramirez Reason for consultation: COVID PNA 09/11/20 21:17 Consult to Nephrology Routine Consulting Provider: Jeremias White Reason for consultation: DC; pt is COVID; pt on remdisivir DS: Diagnosis Discharge Diagnosis (1) COVID-19: Status: Acute (2) Ventricular tachycardia: Status: Acute (3) Acute respiratory disease due to 2019 novel coronavirus: Status: Acute DS: Medications Discharge Medications Home Medications: Home Medications Medication Instructions Recorded Confirmed metoprolol succinate 1 tab PO DAILY 09/11/20 09/11/20 Previous Rx's Medication Instructions Recorded amlodipine 5 mg tablet 5 mg PO DAILY #90 tab 03/29/20 atorvastatin 40 mg tablet 40 mg PO DAILY #90 tab 03/29/20 candesartan 8 mg tablet 8 mg PO DAILY #90 tab 03/29/20 insulin glargine 100 unit/mL (3 15 unit SUBCUT QAM #15 ml 03/29/20 mL) subcutaneous pen DS: Summary Hospital Course Hospital Course: 79-year-old male with a past medical history of hypertension, hyperlipidemia, diabetes, coronary artery disease, chronic kidney disease, CHF with EF of 40% presented to the hospital with a chief complaint of fevers and chills. Most of the history obtained from the patient's family as well as the ER staff. Reporte dly patient was tested COVID positive about few days ago and has been having fevers and chills at home. Denies any shortness of breath. Had dry cough. Denies any chest pain lightheadedness dizziness. Denies any nausea vomiting. Had loose stools. Review of all other systems is negative except mentioned above covid 19. The patient was treated with supplemental oxygen which was able to be weaned off and he is currently not requiring supplemental oxygen. He was started on IV steroids and will be discharged home with PO dexamethasone to complete 10 day course. He was treated with remdesivir and antibiotics and has completed course. dc - he was noted to have mild acute kidney injury superimposed on chronic kidney disease. He was evaluated by Nephrology who recommended outpatient foll ow-up. Creatinine is improving and is close to baseline. He had an episode of nonsustained V-tach which was asymptomatic. This was likely in the setting of known heart failure with reduced ejection fraction. Electrolytes were checked and were within normal limits. He underwent echocardiogram which was unchanged from previous. His metoprolol dose has been increased and he should follow up with his software developer. Time Spent with Patient Time attestation: Total time spent providing and/or coordinating discharge services: Discharge coordination time: Less than 30 minutes Physical Exam Vital Signs: Vital Signs: Last Vital Signs Temp 97.7 F 09/16/20 11:03 Pulse 70 09/16/20 11:03 Resp 20 09/16/20 11:03 BP 140/66 H 09/16/20 11:03 Pulse Ox 96 09/16/20 11:03 Body Mass Index 29.2 Const: General: alert and awake HENMT: Head: Yes normocephalic and Yes atraumatic Resp: Effort & Inspection: normal respiratory effort, no respiratory distress and no use of accessory muscles Extrem: Other: no edema DS: Data Data Completed and Pending Labs on day of discharge: Laboratory Results - last 24 hr 09/15/20 09/15/20 09/15/20 12:37 16:20 19:57 Sodium 140 Potassium 3.6 Chloride 102 Carbon Dioxide 28 Anion Gap 14 BUN 28 H Creatinine 1.53 H Estim Creat Clear Calc 43.3 Estimated GFR 44 POC Glucose 296 H 211 H Random Glucose 363 H* Calcium 8.3 L D Magnesium 2.2 09/16/20 09/16/20 07:18 11:29 Sodium Potassium Chloride Carbon Dioxide Anion Gap BUN Creatinine Estim Creat Clear Calc Estimated GFR POC Glucose 175 H 258 H Random Glucose Calcium Magnesium Preliminary micro results at discharge 09/11/20 18:06 Blood Culture - Preliminary Blood - Venous No growth after 48 hours. 09/11/20 17:55 Blood Culture - Preliminary Blood - Venous No growth after 48 hours. Discharge Plan Discharge Patient Disposition: Home Health Service Discharge Diagnosis: covid 19 Referrals: Po,Enrico Cartagena MD [Primary Care Provider] - 1 Week Discharge Medications: New (DME) Ultra-Light Rollator Misc See Rx Instructions .ROUTE .MEDSUPPLY Qty: 1 RF: 0 cholecalciferol (vitamin D3) [Vitamin D3] 10 mcg (400 unit) Tablet 20 mcg PO DAILY 14 Days Qty: 28 RF: 0 zinc sulfate [Zinc-220] 50 mg zinc (220 mg) Capsule 220 mg PO DAILY 14 Days Qty: 62 RF: 0 ascorbic acid (vitamin C) [Vitamin C] 500 mg Tablet 500 mg PO DAILY 14 Days Qty: 14 RF: 0 dexamethasone 6 mg tablet 6 mg PO DAILY 4 Days Qty: 4 RF: 0 Continued amlodipine 5 mg tablet 5 mg PO DAILY Qty: 90 RF: 0 atorvastatin 40 mg tablet 40 mg PO DAILY Qty: 90 RF: 0 candesartan 8 mg tablet 8 mg PO DAILY Qty: 90 RF: 0 Lantus Solostar U-100 Insulin 100 unit/mL (3 mL) insulin pen 15 unit subcut QAM Qty: 15 RF: 2 Changed metoprolol succinate 50 mg tablet extended release 24 hr 75 mg PO DAILY 30 Days Qty: 45 RF: 0 Discharge Orders: Discharge Order (Routine); Ordered 09/16/20 Ordered By: Carol De Souza Diet: advance to usual diet Activity on Discharge: As tolerated Stand Alone Forms: Patient Portal Discharge page Care Plan Goals: see below Health Concerns: covid 19 ventricuular tachycardia acute kidney injury - resolved. Plan of Treatment: covid 19 - continue full course of dexamethasone. continue isolation precautions per CDC guidelines. CDC Guidelines for home isolation: - Stay away from others - Limit contact with pets and animals: If you must care for a pet, wash your hands before and after interacting with them - Wear a mask if you are sick - Cover your mouth and nose with a tissue when you cough or sneeze. Dispose of tissues in a lined trash can and wash your hands immediately with soap and water for at least 20 seconds. If soap and water are not available, clean hands with alcohol-based hand community liaison officer that contains at least 60% alcohol. - Clean your hands often with soap and water for at least 20 seconds - Avoid touching your eyes, nose and mouth with unwashed hands - Do not share dishes, drinking glasses, cups, eating utensils, towels, or bedding with other people in your home. After using these items, wash them thoroughly with soap and water or put in the crime scene technician. - Clean high-touch surfaces in your isolation area (???sick room??? and bathroom) every day; let a caregiver clean and disinfect high-touch surfaces in other areas of the home. Clean the area or item with soap and water or another detergent if it is dirty. Then, use a household disinfectant. Seek medical attention, but call first: - Seek medical care right away if your illness is worsening (for example, if you have difficulty breathing). - Call your doctor before going in: Before going to the doctor???s office or emergency room, call ahead and tell them your symptoms. They will tell you what to do. - If possible, put on a facemask before you enter the building. If you can???t put on a facemask, try to keep a safe distance from other people (at least 6 feet away). This will help protect the people in the office or waiting room. - Follow care instructions from your healthcare provider and local health department: Your local health authorities will give instructions on checking your symptoms and reporting information. Emergency warning signs for COVID-19: - Difficulty breathing or shortness of breath - Persistent pain or pressure in the chest - New confusion or inability to arouse - Bluish lips or face Additional Instructions: - [] ventricular tachycardia - Your dose of metoprolol has been increased. please call your software developer to schedule an appointment for follow up Acute kidney injury. Mild. renal function has improved to baseline. rishi call your software developer to schedule an appointment for follow up Assessment: See discharge summary
--- NOTE | 2020-09-16 12:51 | MHC.CM.PN ---
CM spoke with dtr re; discharge plan since PT is recommending home PT. Dtr wants patient referred to [facility] per dtr's request. Referral made via [employer]scripts. CM will continue to follow patient for discharge needs.
--- NOTE | 2020-09-16 13:30 | P.F2F_ITS ---
Service Date Service Date: 09/16/20 Encounter Date of encounter: 09/16/20 Reasons for Services Reason for physical therapy: home safety and mobility MD Overseeing Care: Enrico Manuel Homebound: Leaving the home is medically contraindicated at this time without the asist of a device and/or another person due th the listed conditions above and below. Reason homebound: weakness related to hospital stay Certification: Based on the above findings, I certify that this patient is confined to the home and needs intermittent halfway care, physical therapy and/or speech therapy, or continues to need occupational therapy. The patient is under my care, and I have initiated the establishment of the plan of care. The patient will be followed by a physician who will periodically review the plan of care.
--- NOTE | 2020-09-16 13:55 | MHC.CM.PN ---
Patient will be discharged home today with a new referral to [facility], [facility] needed. Patient, Euphemia and [facility] made aware.
[2020-09-16 15:19] VITALS: BP 135/62; PULSE 71; RESP 20; TEMP 36.5; O2SAT 97
[2020-09-16 16:10] LABS: Glucose, Whole Blood 300 mg/dL (60-115)
== END 2020-09-16 17:03 | disposition home health service (06) | DRG 137 ==
LOC: HO.ED 20:34 → HO.EDOVER 21:29 → HO.IMC 09-12 14:03
PROVIDERS: Nurse Practitioner Acute Care; Admitting Provider Hospitalist; Emergency Provider Internal Medicine; PCP Internal Medicine; Visit Provider Family Medicine
DX: U07.1 COVID-19 (principal); J12.82 Pneumonia due to coronavirus disease 2019; N17.9 Acute kidney failure, unspecified; I47.2 Ventricular tachycardia; N18.32 Chronic kidney disease, stage 3b; I25.10 Atherosclerotic heart disease of native coronary artery without angina pectoris; I13.0 Hypertensive heart and chronic kidney disease with heart failure and stage 1 through stage 4 chronic kidney disease, or unspecified chronic kidney disease; E11.22 Type 2 diabetes mellitus with diabetic chronic kidney disease; I25.2 Old myocardial infarction; E11.65 Type 2 diabetes mellitus with hyperglycemia; I50.22 Chronic systolic (congestive) heart failure; E78.5 Hyperlipidemia, unspecified; Z79.4 Long term (current) use of insulin; Z79.899 Other long term (current) drug therapy
CPT/HCPCS: 36415; 71045; 80048; 80076; 82728; 82947; 83605; 83615; 83690; 83735; 84145; 85025; 85379; 85610; 85730; 86140; 87040; 87635; 93005; 93306; 96365; 96366; 96368; 96375; 97163; 99285; J0456; J0696; J1100; J1650; J2930; J3490

== ENCOUNTER → 2020-10-27 10:42 | Outpatient (BNVA) | payer MEDICAID, SELFPAY | PROVIDERS: PCP Internal Medicine; Referring Provider Internal Medicine; Visit Provider Internal Medicine Cardiovascular Disease | DX: I47.2 Ventricular tachycardia (principal); I25.5 Ischemic cardiomyopathy; I71.2 Thoracic aortic aneurysm, without rupture; I25.10 Atherosclerotic heart disease of native coronary artery without angina pectoris | CPT/HCPCS: 99212 ==

== ENCOUNTER → 2020-11-03 09:50 | Outpatient (REF) | payer MEDICAID, SELFPAY ==
--- NOTE | 2020-11-03 14:50 | ECG_ITS ---
Hook-up date: 2020-11-03 10:12:00 Duration: 46:07:00 Test Indications: VENTRICULAR TACHYCARDIA Medications: 562700 QRS complexes 663 Ventricular ectopics which represent <1 % of total QRS comp. 271 Supraventricular ectopics which represent <1 % of total QRS comp. 1 Paced QRS complexs which represent <1 % of total QRS comp. VENTRICULAR ECTOPY 629 Isolated 6 Bigeminal Cycles 17 Couplets 0 Runs 0 Beats in Runs * Beats LONGEST at * BPM at :: -- * Beats FASTEST at * BPM at :: -- SUPRAVENTRICULAR ECTOPY 227 Isolated 5 Couplets 3 Runs 34 Beats in Runs 19 Beats LONGEST at 115 BPM at 01:42:58 2020-11-04 7 Beats FASTEST at 137 BPM at 15:46:14 2020-11-03 HEART RATES 63 MIN at 01:43:13 2020-11-04 76 AVG 117 MAX at 10:18:06 2020-11-03 LONGEST RR 1.0400 secs at 01:50:45 2020-11-04 S-T LEVELS Channel 1 - 128 mm at 10:12:00 2020-11-03 - 128 mm at 10:12:00 2020-11-03 Channel 2 - 128 mm at 10:12:00 2020-11-03 - 128 mm at 10:12:00 2020-11-03 Channel 3 - 128 mm at 02:93:11 -- - 128 mm at 02:93:11 Underlying rhythm is sinus; Average ventricular rate 76/min; range 63-117/min; Occasional PVCs (<1%); mostly isolated, some couplets and bigeminy; Occasional PACs (<1%); mostly isolated, some short runs; No sustained arrhythmias; Patient diary not available for review. Referred By: Marcelo Bauer Overread By: LILIANA MAX
== END ==
LOC: HO.CARD 09:50
PROVIDERS: PCP Internal Medicine; Visit Provider Internal Medicine Cardiovascular Disease
DX: I47.2 Ventricular tachycardia (principal)
CPT/HCPCS: 93226

== ENCOUNTER 2021-05-23 10:45 | Outpatient (REF) | payer MEDICAID, SELFPAY | END 2021-05-23 10:46 | disposition home or self-care (01) | LOC: HO.LAB 10:45 | PROVIDERS: Visit Provider Internal Medicine | DX: Z20.822 Contact with and (suspected) exposure to COVID-19 (principal) | CPT/HCPCS: C9803; U0003; U0005 ==